=== PATIENT | female | born 1990 | race Caucasian/White ===

== ENCOUNTER 2016-05-16 14:55 | Emergency (ER) | payer OTHER ==
[~2016-05-16] VITALS: Ht 172.7 cm; Wt 90.6 kg
[~2016-05-16 14:55] MED LIST: ATOR-22 PO; BCPILLS PO; EFFSR150 PO; LIRA18IN SQ; METF-384 PO; TOPI50TA16 PO
[2016-05-16 15:02] VITALS: TEMP 37; Ht 172.7 cm; Wt 90.6 kg
[2016-05-16] MEDS ORDERED: DiphenhydrAMINE HCL 50 MG/ML VIAL IV STA (15:15)
[2016-05-16] MEDS ORDERED: DEXAMETHASONE SOD INJ 10 MG/ML VIAL IV ONE (15:15)
[2016-05-16] MEDS ORDERED: FAMOTIDINE IV INJ 20 MG in DEXTROSE 5% 100ML 100 ML IV STA (15:15)
[2016-05-16] MEDS ORDERED: EpINEphrine INJ 1MG/ML AMP 1 MG/ML AMP IM STA (15:15)
[2016-05-16 15:20] VITALS: O2SAT 100
--- NOTE | 2016-05-16 15:27 | EMERGENCY ROOM VISIT NOTE ---
History Report prepared by Quinn: Yovany Velasquez Under the Supervision of: Dr. Paul Mccann M.D. First contact with patient: 15:11 Chief Complaint: ALLERGIC REACTION Stated Complaint: HIVES, SOB, LIPS SWOLLEN History of Present Illness The patient is a 26 year old female who presents to the Emergency Room with complaints of a sudden allergic reaction beginning three hours prior to arrival. She associates facial swelling, hives on her face and chest, lip tingling, and swollen lips with today's symptoms. The patient notes the lip swelling began around 30-45 minutes ago. She denies eating anything out of the ordinary, because she made the ferro, eggs, and hamburger that she consumed today. The patient notes she is allergic to strawberries, but denies being in contact with them. She states she is a diabetic and takes pills and injections to control it. The patient denies any recent medication changes. Source of History: patient Onset: 3 hours prior to arrival Position: other (global) Quality: other (allergic reaction) Timing: other (sudden) Associated Symptoms: + rash Note: Associated symptoms: facial swelling, hives on her face and chest, lip tingling , and swollen lips Review of Systems See HPI for pertinent positives & negatives. A total of 10 systems reviewed and were otherwise negative. Past Medical & Surgical Medical Problems: (1) section (2) Cholecystectomy (3) Diabetes mellitus type 2 (4) R/O labor Family History Diabetes mellitus Kidney disease Social History Smoking Status: Never Smoker Alcohol Use: none Marital Status: Housing Status: lives with significant other Occupation Status: employed Current/Historical Medications Scheduled Atorvastatin (Lipitor), 20 MG PO DAILY Control Pills ( Control Pills), 1 TAB PO DAILY Epinephrine (Epipen 2-Mike), 1 APPLN IM DIRECTED Liraglutide (Victoza), 1.2 ML SQ QAM Metformin Hcl (Glucophage), 1,000 MG PO BID Prednisone (Prednisone), 2 TAB PO DAILY Ranitidine (Zantac), 150 MG PO BID Topiramate (Topamax), 50 MG PO QAM Topiramate (Topamax), 75 MG PO QPM Venlafaxine Hcl (Venlafaxine Hcl Er), 150 MG PO DAILY Allergies Coded Allergies: Oxycodone (Verified Allergy, Unknown, HIVES, 12/01/15) [place] (Verified Allergy, Unknown, ., 12/01/15) Physical Exam Vital Signs Date Time Temp Pulse Resp B/P Pulse Ox O2 Delivery O2 Flow Rate FiO2 05/16/16 17:19 81 17 113/85 97 Room Air 05/16/16 15:46 84 16 134/81 100 Room Air 05/16/16 15:28 128 05/16/16 15:20 100 Room Air 05/16/16 15:04 98 Room Air 05/16/16 15:02 37.0 78 17 140/107 100 Room Air Physical Exam GENERAL: Patient is in no acute distress. HEENT: Facial swelling with some urticarial lesions noted. Mild lip edema noted. Mucous membranes moist. No uvular edema. NECK: No stridor, no adenopathy, no meningismus, trachea is midline. LUNGS: Clear to auscultation bilaterally, no wheeze, no rhonchi, breath sounds equal. HEART: Without murmurs gallops or rubs, regular rate and rhythm. ABDOMEN: Soft, nontender, bowel sounds positive, no hernias, no peritonitis. EXTREMITIES: No cyanosis or edema, full range of motion of all the joints without pain or difficulty, no signs for acute trauma. NEUROLOGIC: Oriented x 3, no acute motor or sensory deficits, no focal weakness. SKIN: Scattered reddened, slightly raised urticarial lesions noted. No jaundice , no diaphoresis. Medical Decision & Procedures Medications Administered Medications (Trade) Dose Ordered Sig/Curtis Route Start Time Stop Time Status Last Admin Dose Admin Epinephrine HCl (EpINEphrine INJ 1MG/ML AMP/VIAL) 0.3 mg NOW STAT IM 05/16/16 15:15 05/16/16 15:18 DC 05/16/16 15:22 0.3 MG Dexamethasone Sodium Phosphate 10 mg 10 mg NOW ONCE IV 05/16/16 15:15 05/16/16 15:18 DC 05/16/16 15:23 10 MG Famotidine/ Dextrose (Pepcid IV Inj/ D5 100ml) 102 ml @ 200 mls/hr NOW STAT IV 05/16/16 15:15 05/16/16 15:45 DC 05/16/16 15:43 200 MLS/HR Diphenhydramine HCl (Benadryl Inj) 50 mg NOW STAT IV 05/16/16 15:15 05/16/16 15:18 DC 05/16/16 15:23 50 MG Epinephrine (Epipen) 0.3 mg NOW STAT IM 05/16/16 16:57 05/16/16 16:58 DC 05/16/16 17:17 0.3 MG ED Course 151: The patient was evaluated in room A11B. A complete history and physical exam was performed. 1515: Ordered Benadryl Inj 50 mg IV, Famotidine 20 mg/ Dextrose 102 ml @ 200 mls /hr IV, Decadron Inj 10 mg IV, Epinephrine HCl 0.3 mg IM. 1637: Reevaluated the patient at this time, and she is feeling markedly better. The facial swelling and redness is resolving, as well as the lip swelling. The patient is resting comfortably. 1657: Ordered Epipen 0.3 mg IM--to be taken home with the patient. 1800: The patient will be watched here in the ED for a little longer. If she does well, the patient will be discharged home. She is presently resting comfortably and feels markedly improved. Medical Decision The differential diagnoses include but are not limited to: acute allergic reaction, food borne allergy, environmental allergy, medication reaction, anaphylaxis, wheezing, hives. The patient presents with what seems like an acute allergic reaction. The cause was unclear. She had no uvular edema, she was not hypoxic. There was no wheezing. She did have some facial swelling, lip edema and hives. The patient was aggressively managed. She was placed on the monitor. She received IM epinephrine, IV Decadron, IV Pepcid and IV Benadryl. The patient has had significant improvement in her symptoms with the above meds. She is resting comfortably. The facial hives and edema have resolved. She is resting, she is not short of breath. The patient will be watched in the emergency room for around 4 hours. If she does well, she will be discharged on oral Benadryl, oral Zantac, oral prednisone. She will receive an epinephrine pen to have with her at all times. Because she is diabetic she will need to closely watch her sugar while taking prednisone. She has adjusted her meds before when on steroids. The patient was encouraged to return to this ER for worsening symptoms. She will see her doctor's office for eventual allergy testing. Impression Primary Impression: Acute allergic reaction Scribe Attestation The scribe's documentation has been prepared under my direction and personally reviewed by me in its entirety. I confirm that the note above accurately reflects all work, treatment, procedures, and medical decision making performed by me. Departure Information Dispostion Still a Patient Prescriptions Ranitidine (Zantac) 150 Mg Tab 150 MG PO BID for 3 Days, #6 TAB Prov: Paul Mccann M.D. 05/16/16 Prednisone (Prednisone) 20 Mg Tab 2 TAB PO DAILY for 3 Days, #6 TAB Prov: Paul Mccann M.D. 05/16/16 Epinephrine (EPIPEN 2-MIKE) 0.3 Mg Inj 1 APPLN IM DIRECTED, #1 APPL Prov: Paul Mccann M.D. 05/16/16 Referrals No Doctor, Assigned (PCP) Forms HOME CARE DOCUMENTATION FORM, IMPORTANT VISIT INFORMATION Patient Instructions My [facility] Additional Instructions keep epipen with you at all times benadryl 2 tab 3x per day for 3 more days prednisone daily for 3 more days zantac 2x per day for 3 more days keep a very close watch on your sugars and adjust meds as needed follow with your doctor for allergy testing return if worsening
[2016-05-16] MEDS ORDERED: VENL150T33 PO (15:46)
[2016-05-16] MEDS ORDERED: PRED20TA PO (16:56)
[2016-05-16] MEDS ORDERED: EPP3/2 IM (16:56)
[2016-05-16] MEDS ORDERED: ZNTT/150 PO (16:56)
[2016-05-16] MEDS ORDERED: EPINEPHRINE ADULT AUTO-INJECT 0.3 MG SYR IM STA (16:57)
[2016-05-16 19:10] VITALS: BP 136/93; PULSE 71; O2SAT 98
== END 2016-05-16 19:10 | disposition home or self-care (01) ==
LOC: C.EDB 14:57 → C.EDA 19:10
DX: T78.40XA Allergy, unspecified, initial encounter (principal); L50.0 Allergic urticaria; E11.9 Type 2 diabetes mellitus without complications; Z83.3 Family history of diabetes mellitus; Z79.3 Long term (current) use of hormonal contraceptives; Z79.899 Other long term (current) drug therapy; X58.XXXA Exposure to other specified factors, initial encounter

== ENCOUNTER 2016-05-21 13:04 | Emergency (ER) | payer OTHER ==
[~2016-05-21] VITALS: Ht 172.7 cm; Wt 88.8 kg
[~2016-05-21 13:04] MED LIST changes: -EFFSR150 PO; +EPP3/2 IM; +VENL150T33 PO
[2016-05-21 13:18] VITALS: TEMP 36.8; Ht 172.7 cm; Wt 88.8 kg
[2016-05-21] MEDS ORDERED: DiphenhydrAMINE HCL 50 MG/ML VIAL IV STA (13:56)
[2016-05-21] MEDS ORDERED: PROCHLORPERAZINE 5 MG/ML 2 ML VIAL IV STA (13:56)
[2016-05-21] MEDS ORDERED: SODIUM CHLORIDE 0.9% 1000ML 1,000 ML IV STA (13:56)
--- NOTE | 2016-05-21 14:15 | EMERGENCY ROOM VISIT NOTE ---
History Report prepared by Quinn: Verna rOdaz Under the Supervision of: Dr. Sissy Gama M.D. First contact with patient: 13:24 Chief Complaint: SYNCOPE Stated Complaint: PASSING OUT, HEADACHE Nursing Triage Summary: Triage note: pt reports "i was sitting at work and passed out." pt reports head pain "it has been hurting for about 2 weeks." History of Present Illness The patient is a 26 year old female who presents to the Emergency Room with complaints of a syncopal episode that occurred 2 hours ago. The patient has a history of diabetes and takes Metformin and Venlafaxine PO, as well as Liraglutide injections to control her sugar. This morning, the patient did eat breakfast. She did not feel as if her sugar was low through the morning. At lunch, she was sitting at her desk and had a syncopal episode. The patient's coworkers said that she bumped her forehead on her desk. Initially she was not responding to physical stimuli, but she woke up after about a minute. Upon arrival, her blood sugar was 64, which is on the low side for her. The patient reports that she has had a migraine headache for the past two weeks. She states that she has a history of migraine headaches and her current headache is normal for her, especially considering the weather recently. Currently, she has a headache, but it is not any worse than it was prior to the syncopal event earlier today. The patient has never been a smoker. She does not have a chance of as she has a history of a tubal ligation and is on control pills. She denies chest pain or shortness of breath. Source of History: patient Onset: 2 hours ago Position: other (Global) Quality: other (syncope) Timing: other (episode) Associated Symptoms: + headache, No SOB, No chest pain Review of Systems See HPI for pertinent positives & negatives. A total of 10 systems reviewed and were otherwise negative. Past Medical & Surgical Medical Problems: (1) section (2) Cholecystectomy (3) Diabetes mellitus type 2 (4) R/O labor Family History Diabetes mellitus Kidney disease Social History Smoking Status: Never Smoker Alcohol Use: none Marital Status: Housing Status: lives with significant other Occupation Status: employed Current/Historical Medications Scheduled Atorvastatin (Lipitor), 20 MG PO DAILY Control Pills ( Control Pills), 1 TAB PO DAILY Epinephrine (Epipen 2-Mike), 1 APPLN IM DIRECTED Liraglutide (Victoza), 1.2 ML SQ QAM Metformin Hcl (Glucophage), 1,000 MG PO BID Topiramate (Topamax), 50 MG PO QAM Topiramate (Topamax), 75 MG PO QPM Venlafaxine Hcl (Venlafaxine Hcl Er), 150 MG PO DAILY Allergies Coded Allergies: Oxycodone (Verified Allergy, Unknown, HIVES, 05/21/16) [place] (Verified Allergy, Unknown, ., 05/21/16) Physical Exam Vital Signs Date Time Temp Pulse Resp B/P Pulse Ox O2 Delivery O2 Flow Rate FiO2 05/21/16 16:17 74 14 108/69 99 05/21/16 14:33 87 16 127/91 97 Room Air 05/21/16 13:43 67 05/21/16 13:18 36.8 70 18 130/89 99 Room Air Physical Exam Vital signs reviewed. General: Well-appearing 26 year old female, in no significant distress. HEENT: No scleral icterus, PERRLA, neck supple. Atraumatic. Cardiovascular: Regular rate and rhythm, no extra sounds. Pulmonary: Clear to auscultation bilaterally, normal work of breathing. Abdomen: Soft, nontender, nondistended, positive bowel sounds. Musculoskeletal: Atraumatic, no peripheral edema. Neurologic: Patient awake alert and oriented x 3, full strength in all 4 extremities. Cranial nerves 2 through 12 grossly intact, no meningeal signs. Skin: Warm, dry, no rash Medical Decision & Procedures ER Provider Diagnostic Interpretation: X-ray results as stated below per interpretation by me and the radiologist: CHEST ONE VIEW PORTABLE CLINICAL HISTORY: Syncope. COMPARISON STUDY: Chest radiograph August 21, 2015, FINDINGS: Lung volumes are normal. Lungs are clear. There is no pneumothorax or pleural effusion. Cardiac size is at the upper limits of normal. There is no evidence of pulmonary edema. IMPRESSION: No acute cardiopulmonary findings. Electronically signed by: Rajendra Ho M.D. 05/21/2016 2:37 PM Dictated Date/Time: 05/21/2016 2:37 PM Laboratory Results 05/21/16 14:15 Red Blood Count 4.97, Mean Corpuscular Volume 84.1, Mean Corpuscular Hemoglobin 28.0, Mean Corpuscular Hemoglobin Concent 33.3, Mean Platelet Volume 11.8, Neutrophils (%) (Auto) 56.4, Lymphocytes (%) (Auto) 36.2, Monocytes (%) (Auto) 7.2, Eosinophils (%) (Auto) 0.0, Basophils (%) (Auto) 0.0, Neutrophils # (Auto) 3.47, Lymphocytes # (Auto) 2.22, Monocytes # (Auto) 0.44, Eosinophils # (Auto) 0.00, Basophils # (Auto) 0.00 05/21/16 14:15 Test 05/21/16 00:00 05/21/16 14:15 05/21/16 14:24 05/21/16 14:31 Urine Color YELLOW Urine Appearance CLEAR (CLEAR) Urine pH 6.5 (4.5-7.5) Urine Specific [place] 1.002 (1.000-1.030) Urine Protein NEG (NEG) Urine Glucose (UA) NEG (NEG) Urine Ketones NEG (NEG) Urine Occult Blood TRACE (NEG) Urine Nitrite NEG (NEG) Urine Bilirubin NEG (NEG) Urine Urobilinogen NEG (NEG) Urine Leukocyte Esterase NEG (NEG) Urine WBC (Auto) 1-5 /hpf (0-5) Urine RBC (Auto) 0-4 /hpf (0-4) Urine Hyaline Casts (Auto) 0 /lpf (0-5) Urine Epithelial Cells (Auto) 5-10 /lpf (0-5) Urine Bacteria (Auto) NEG (NEG) White Blood Count 6.14 K/uL (4.8-10.8) Red Blood Count 4.97 M/uL (4.2-5.4) Hemoglobin 13.9 g/dL (12.0-16.0) Hematocrit 41.8 % (37-47) Mean Corpuscular Volume 84.1 fL (80-100) Mean Corpuscular Hemoglobin 28.0 pg (25-34) Mean Corpuscular Hemoglobin Concent 33.3 g/dl (32-36) Platelet Count 256 K/uL (130-400) Mean Platelet Volume 11.8 fL (7.4-10.4) Neutrophils (%) (Auto) 56.4 % Lymphocytes (%) (Auto) 36.2 % Monocytes (%) (Auto) 7.2 % Eosinophils (%) (Auto) 0.0 % Basophils (%) (Auto) 0.0 % Neutrophils # (Auto) 3.47 K/uL (1.4-6.5) Lymphocytes # (Auto) 2.22 K/uL (1.2-3.4) Monocytes # (Auto) 0.44 K/uL (0.11-0.59) Eosinophils # (Auto) 0.00 K/uL (0-0.5) Basophils # (Auto) 0.00 K/uL (0-0.2) RDW Standard Deviation 41.8 fL (36.4-46.3) RDW Coefficient of Variation 13.7 % (11.5-14.5) Immature Granulocyte % (Auto) 0.2 % Immature Granulocyte # (Auto) 0.01 K/uL (0.00-0.02) Anion Gap 8.0 mmol/L (3-11) Est Creatinine Clear Calc Drug Dose 105.7 ml/min Estimated GFR () 97.0 Estimated GFR (Non- 83.7 BUN/Creatinine Ratio 11.5 (10-20) Calcium Level 8.7 mg/dl (8.5-10.1) Magnesium Level 2.2 mg/dl (1.8-2.4) Total Bilirubin 0.7 mg/dl (0.2-1) Direct Bilirubin 0.2 mg/dl (0-0.2) Aspartate Amino Transf (AST/SGOT) 9 U/L (15-37) Alanine Aminotransferase (ALT/SGPT) 16 U/L (12-78) Alkaline Phosphatase 53 U/L (45-117) Total Protein 7.6 gm/dl (6.4-8.2) Albumin 3.9 gm/dl (3.4-5.0) Thyroid Stimulating Hormone (TSH) 0.726 uIu/ml (0.300-4.500) Human Chorionic Gonadotropin, Qual NEG (NEG) Bedside Glucose 85 mg/dl (70-90) Bedside D-Dimer 358 ng/mlFEU (0-450) Bedside Troponin I 0.000 ng/ml (0-0.045) Laboratory results per my review. Medications Administered Medications (Trade) Dose Ordered Sig/Curtis Route Start Time Stop Time Status Last Admin Dose Admin Prochlorperazine Edisylate (Compazine Inj) 10 mg NOW STAT IV 05/21/16 13:56 05/21/16 13:59 DC 05/21/16 14:29 10 MG Diphenhydramine HCl 25 mg 25 mg NOW STAT IV 05/21/16 13:56 05/21/16 13:59 DC 05/21/16 14:29 25 MG Sodium Chloride (Nss 1000ml) 1,000 ml @ 999 mls/hr Q1H1M STAT IV 05/21/16 13:56 05/21/16 14:56 DC 05/21/16 14:29 999 MLS/HR ECG Indication: syncope Rate (beats per minute): 60 Rhythm: sinus with SA Findings: no acute ischemic change, no ectopy ED Course 1354: The patient was evaluated in room A11. A complete history and physical examination was performed. 1356: Ordered NSS 1000 ml @ 999 mls/hr IV, Benadryl Inj 25 mg IV, Compazine Inj 10 mg IV. 1611: Upon reevaluation, the patient was resting comfortably. I discussed findings with the patient. She verbalized agreement of the treatment plan. She was discharged home. Medical Decision Differential diagnosis: Etiologies such as vasovagal event, infection, hypoglycemia, electrolyte abnormalities, cardiac sources, intracerebral event, toxicologic, neurologic, as well as others were entertained. This patient was evaluated and appeared to be in no significant distress. IV access was obtained and laboratory work was drawn. The patient was medicated with IV Compazine and Benadryl for her headache. Laboratory work is reassuring. Patient's mother states she has lost over 50 pounds and is on the same dose of insulin. She feels that her blood sugars drop pretty easily at this point. Patient was given a snack and tolerated this well. Her headache resolved. Patient was discharged to the care of her mother to follow-up with her PCP this week. Patient will return to the ER for worsening of symptoms or any medical concerns. Impression Primary Impression: Syncope Scribe Attestation The scribe's documentation has been prepared under my direction and personally reviewed by me in its entirety. I confirm that the note above accurately reflects all work, treatment, procedures, and medical decision making performed by me. Departure Information Dispostion Home / Self-Care Referrals Steve Beckman III, M.D. (PCP) Patient Instructions My [facility] Additional Instructions Diagnosis: Syncope Please monitor your blood sugars closely this evening. Eat every few hours and drink plenty of clear fluids. Follow-up with your physician this week if symptoms recur. Return to the ER immediately for worsening of symptoms or any medical concerns. Problem Qualifiers Primary Impression: Syncope Syncope type: unspecified Qualified Codes: R55 - Syncope and collapse
[2016-05-21 14:33] LABS: COMPLETE YES; HEMATOCRIT 41.8 % (37-47); IG% 0.2 %; LYMPH % 36.2 %; LYMPH ABS # 2.22 K/uL (1.2-3.4); MEAN CELL VOLUME 84.1 fL (80-100); MEAN CORPUSCULAR HGB CONC 33.3 g/dl (32-36); MEAN PLATELET VOLUME 11.8 fL (7.4-10.4); MONO % 7.2 %; NEUT % 56.4 %; PLATELET COUNT 256 K/uL (130-400); RED BLOOD COUNT 4.97 M/uL (4.2-5.4); WHITE BLOOD COUNT 6.14 K/uL (4.8-10.8)
--- NOTE | 2016-05-21 14:39 | DIAGNOSTIC IMAGING REPORT ---
CHEST ONE VIEW PORTABLE CLINICAL HISTORY: Syncope. COMPARISON STUDY: Chest radiograph August 21, 2015, FINDINGS: Lung volumes are normal. Lungs are clear. There is no pneumothorax or pleural effusion. Cardiac size is at the upper limits of normal. There is no evidence of pulmonary edema. IMPRESSION: No acute cardiopulmonary findings. Electronically signed by: Rajendra Ho M.D. 05/21/2016 2:37 PM Dictated Date/Time: 05/21/2016 2:37 PM
[2016-05-21 14:50] LABS: BUN/CREATININE RATIO 11.5 (10-20); CALCIUM 8.7 mg/dl (8.5-10.1); CREATININE 0.94 mg/dl (0.60-1.20); MAGNESIUM 2.2 mg/dl (1.8-2.4); POTASSIUM 3.4 mmol/L (3.5-5.1)
[2016-05-21 14:54] LABS: PREG INTERNAL NEGATIVE QC NEG CLEAR BACKGROUND; PREG INTERNAL POSITIVE QC POS CONTROL LINE
[2016-05-21 15:01] LABS: THYROID STIMULATING HORMONE 0.726 uIu/ml (0.300-4.500)
[2016-05-21 16:01] LABS: URINE APPEARANCE CLEAR (CLEAR); URINE BILIRUBIN NEG (NEG); URINE COLOR YELLOW; URINE NITRITE NEG (NEG); URINE PH 6.5 (4.5-7.5); URINE SPECIFIC GRAVITY 1.002 (1.000-1.030); UROBILINOGEN NEG (NEG); ZZUR CULT IF INDIC CLEAN CATCH NO
[2016-05-21 16:05] LABS: MANUAL MICROSCOPIC REQUIRED? NO; REVIEW REQ? YES
[2016-05-21 16:17] VITALS: BP 108/69; PULSE 74; O2SAT 99
== END 2016-05-21 16:26 | disposition home or self-care (01) ==
LOC: C.EDB 13:06 → C.EDA 16:26
DX: R55 Syncope and collapse (principal); E11.9 Type 2 diabetes mellitus without complications; Z90.49 Acquired absence of other specified parts of digestive tract

== ENCOUNTER 2016-10-10 10:43 | Emergency (ER) | payer OTHER ==
[~2016-10-10] VITALS: Ht 172.7 cm; Wt 91.4 kg
[~2016-10-10 10:43] MED LIST changes: -ATOR-22 PO; -LIRA18IN SQ; -METF-384 PO; -TOPI50TA16 PO; -VENL150T33 PO
[2016-10-10 10:45] VITALS: TEMP 36.8; Ht 172.7 cm; Wt 91.4 kg
--- NOTE | 2016-10-10 11:01 | EMERGENCY ROOM VISIT NOTE ---
History Report prepared by Quinn: Bonnie Whitmore Under the Supervision of: Dr. Prasad Keating M.D. First contact with patient: 10:52 Chief Complaint: VOMITING Stated Complaint: SUNBURN, VOMITING, HEADACHE History of Present Illness The patient is a 26 year old female who presents to the Emergency Room with complaints of a persistent migraine-headache that began around 0100 this morning. She currently rates her discomfort as a 7/10 in severity. The patient reports that she was outside all day yesterday noting that she developed a bad sunburn. She states that she woke up this morning with a migraine-headache and began vomiting. The patient associates nausea with her symptoms. She states that light worsens her discomfort. The patient reports a history of migraine-headaches. Source of History: patient Onset: 0100 this morning Position: head Symptom Intensity: 7/10 Quality: ache (migraine) Timing: other (persistent) Modifying Factors (Worsening): other (light) Associated Symptoms: + nausea, + vomiting Note: Associated Symptoms: sunburn Review of Systems See HPI for pertinent positives & negatives. A total of 10 systems reviewed and were otherwise negative. Past Medical & Surgical Medical Problems: (1) section (2) Cholecystectomy (3) Diabetes mellitus type 2 (4) R/O labor Family History Diabetes mellitus Kidney disease Social History Smoking Status: Never Smoker Alcohol Use: none Marital Status: Housing Status: lives with significant other Occupation Status: employed Current/Historical Medications Scheduled Atorvastatin (Lipitor), 20 MG PO DAILY Control Pills ( Control Pills), 1 TAB PO DAILY Epinephrine (Epipen 2-Mike), 1 APPLN IM DIRECTED Liraglutide (Victoza), 1.2 ML SQ QAM Metformin Hcl (Glucophage), 1,000 MG PO BID Topiramate (Topamax), 50 MG PO QAM Topiramate (Topamax), 75 MG PO QPM Venlafaxine Hcl (Venlafaxine Hcl Er), 150 MG PO DAILY Allergies Coded Allergies: Oxycodone (Verified Allergy, Unknown, HIVES, 10/10/16) [place] (Verified Allergy, Unknown, ., 10/10/16) Physical Exam Vital Signs Date Time Temp Pulse Resp B/P (MAP) Pulse Ox O2 Delivery O2 Flow Rate FiO2 10/10/16 12:59 86 18 113/70 100 10/10/16 11:36 71 14 114/74 100 Room Air 10/10/16 10:45 36.8 75 16 120/82 99 Room Air Physical Exam GENERAL: Patient awake, alert, oriented x 3. Patient follows commands. Patient does not appear toxic. Patient appears well nourished, but mildly to moderately dry. SKIN: Sunburn to the anterior and posterior chest and some to the face and ears , no pallor, cyanosis or rash HEENT: Normal head, pupils equal, reactive to light and accommodation. Ears normal. Oral cavity and posterior pharynx, mucous membranes appear slightly dry. Neck: Without adenopathy, no neck vein distention. LUNGS: Clear to auscultation. No wheezes, no rales, no rhonchi. HEART: No murmurs. No gallops. No rubs ABDOMEN: Vague, generalized abdominal tenderness. No masses, no rebound, no hepatomegaly or splenomegaly. EXTREMITIES: No signs of trauma or infection. NEUROLOGIC: Cranial nerves II-XII within normal limits. No gross motor sensory function deficits. Medical Decision & Procedures Medications Administered Medications (Trade) Dose Ordered Sig/Curtis Route Start Time Stop Time Status Last Admin Dose Admin Sodium Chloride 1,000 ml @ 1,000 mls/hr Q1H ONCE IV 10/10/16 11:15 10/10/16 12:14 DC 10/10/16 11:34 1,000 MLS/HR Prochlorperazine Edisylate (Compazine Inj) 10 mg NOW STAT IV 10/10/16 11:06 10/10/16 11:08 DC 10/10/16 11:35 10 MG ED Course 1054: Past medical records reviewed. The patient was evaluated in room B3B. A complete history and physical examination was performed. 1106: Ordered Compazine Inj 10 mg IV. 1115: Ordered Sodium Chloride 1000 ml @ 1000 mls/hr IV. 1230: I reevaluated the patient and she is resting comfortably. I discussed the exam findings with her and I discussed the treatment plan. She verbalized complete understanding and agreement. She is ready to go home. Medical Decision Nurses notes reviewed. Medical history sheet reviewed. Differential diagnosis includes but is not limited to: sunburn, dehydration, gastroenteritis, metabolic disorder. The patient is here with significant sunburn from yesterday and now vomiting today. Patient complains of a headache. The patient is mild to moderately dehydrated. The patient was given IV fluids and Compazine. The patient had marked improvement. She is able to drink fluids prior to departure. I do not believe she requires any lab work. The patient was discharged feeling significantly better. Medication Reconciliation: I attest that I have personally reviewed the patient' s current medication list. Blood pressure Screening: Patient was found to have normal blood pressure on screening and does not require follow up. Impression Primary Impression: Dehydration Additional Impressions: Sunburn Headache Scribe Attestation The scribe's documentation has been prepared under my direction and personally reviewed by me in its entirety. I confirm that the note above accurately reflects all work, treatment, procedures, and medical decision making performed by me. Departure Information Dispostion Home / Self-Care Referrals Steve Beckman III, M.D. (PCP) Forms HOME CARE DOCUMENTATION FORM, IMPORTANT VISIT INFORMATION Patient Instructions ED Burn Sunburn, My [facility] Additional Instructions Drink at least 3-4 quarts of liquid over the next 24 hours. You may take Tylenol if you have any more headache. Use sunscreen in the future. Problem Qualifiers
[2016-10-10] MEDS ORDERED: PROCHLORPERAZINE 5 MG/ML 2 ML VIAL IV STA (11:06)
[2016-10-10] MEDS ORDERED: SODIUM CHLORIDE 0.9% 1000ML 1,000 ML IV ONE (11:15)
[2016-10-10 12:59] VITALS: BP 113/70; PULSE 86; O2SAT 100
[2017-02-10] MEDS ORDERED: TOPI50TA16 PO ×2 (11:16→13:51)
[2017-02-10] MEDS ORDERED: LIRA18IN SQ (13:51)
[2017-02-10] MEDS ORDERED: ATOR-22 PO (13:52)
[2017-02-10] MEDS ORDERED: METF-384 PO (14:04)
[2017-02-10] MEDS ORDERED: VENL150T33 PO (15:46)
== END 2016-10-10 13:01 | disposition home or self-care (01) ==
LOC: C.EDB 10:44
DX: E86.0 Dehydration (principal); L55.9 Sunburn, unspecified; R51 Headache; E11.9 Type 2 diabetes mellitus without complications; Z83.3 Family history of diabetes mellitus; Z84.1 Family history of disorders of kidney and ureter; Z79.899 Other long term (current) drug therapy; Z79.3 Long term (current) use of hormonal contraceptives

== ENCOUNTER 2017-02-10 16:06 | Emergency (ER) | payer OTHER ==
[~2017-02-10] VITALS: Ht 172.7 cm; Wt 92.4 kg
[~2017-02-10 16:06] MED LIST changes: +ATOR-22 PO; +LIRA18IN SQ; +METF-384 PO; +TOPI50TA16 PO; +VENL150T33 PO
[2017-02-10 16:12] VITALS: TEMP 36.6; Ht 172.7 cm; Wt 92.4 kg
[2017-02-10] MEDS ORDERED: FAMOTIDINE 20MG/102 ML D5W IV STA (16:30)
[2017-02-10] MEDS ORDERED: DEXAMETHASONE SOD INJ 10 MG/ML VIAL IV ONE (16:30)
[2017-02-10] MEDS ORDERED: DiphenhydrAMINE HCL 50 MG/ML VIAL IV STA (16:30)
[2017-02-10] MEDS ORDERED: EPP3/2 IM (17:05)
[2017-02-10 18:37] VITALS: BP 126/85; PULSE 73; O2SAT 98
--- NOTE | 2017-02-10 22:28 | EMERGENCY ROOM VISIT NOTE ---
History Report prepared by Quinn: Selvin Esquivel Under the Supervision of: Dr. Gene Robles D.O. First contact with patient: 16:18 Chief Complaint: RESPIRATORY PROBLEMS Stated Complaint: HARD BREATHING, TINGLING LIPS, HIVES Nursing Triage Summary: "I just can't get my breath. I am allergic to cats and I was at a house with cats. I work for [employer]. I tried my inhaler, but it doesn't feel like it is helping." per pt. Pt able to speak full sentences in triage. History of Present Illness The patient is a 26 year old female who presents to the Emergency Room with complaints of shortness of breath that began about a half hour ago. She describes this shortness of breath as a tightness and itching in her throat. At this time, she was working and was sent to a home that had cats. She was in the house for about 10 minutes and then her symptoms began. She does have a cat allergy, but her reaction has never been this bad. She is having tingling in her lips and itching globally. She tried to use an inhaler but it did not help. She denies any nausea, vomiting, or diarrhea. She has a history of type 1 diabetes. She denies any other past medical problems. Source of History: patient Onset: 30 minutes ago Position: throat Symptom Intensity: moderate Quality: other (Tightness) Timing: constant Associated Symptoms: No nausea, No vomiting, No diarrhea Note: She is globally itchy. Review of Systems See HPI for pertinent positives & negatives. A total of 10 systems reviewed and were otherwise negative. Past Medical & Surgical Medical Problems: (1) section (2) Cholecystectomy (3) Diabetes mellitus type 2 (4) R/O labor Family History Diabetes mellitus Kidney disease Social History Smoking Status: Never Smoker Alcohol Use: none Marital Status: Housing Status: lives with significant other Occupation Status: employed Current/Historical Medications Scheduled Atorvastatin (Lipitor), 20 MG PO DAILY Liraglutide (Victoza), 1.2 ML SQ QAM Metformin Hcl (Glucophage), 1,000 MG PO BID Topiramate (Topamax), 50 MG PO QAM Topiramate (Topamax), 75 MG PO QPM Venlafaxine Hcl (Venlafaxine Hcl Er), 150 MG PO DAILY Scheduled PRN Epinephrine (Epipen), 0.3 MG IM UD PRN for ALLERGIC REACTION Allergies Coded Allergies: Cat Dander (Verified Allergy, Unknown, Unknown, 02/10/17) Oxycodone (Verified Allergy, Unknown, HIVES, 10/10/16) [place] (Verified Allergy, Unknown, ., 10/10/16) Physical Exam Vital Signs Date Time Temp Pulse Resp B/P (MAP) Pulse Ox O2 Delivery O2 Flow Rate FiO2 02/10/17 18:37 73 126/85 98 02/10/17 17:24 62 127/86 100 Room Air 02/10/17 16:15 100 Room Air 02/10/17 16:12 36.6 66 18 131/93 100 Room Air Physical Exam GENERAL: Sitting up in bed, alert, well appearing, well nourished, no distress, non-toxic, speaking in full sentences. EYE EXAM: normal conjunctiva OROPHARYNX: no exudate, no erythema, lips, buccal mucosa, and tongue normal and mucous membranes are moist NECK: supple, no nuchal rigidity, no adenopathy, non-tender, no stridor LUNGS: Clear to auscultation. Normal chest wall mechanics HEART: no murmurs, S1 normal and S2 normal ABDOMEN: abdomen soft, non-tender, normo-active bowel sounds, no masses, no rebound or guarding. BACK: Back is symmetrical on inspection and there is no deformity, no midline tenderness, no CVA tenderness. SKIN: no rashes and no bruising UPPER EXTREMITIES: upper extremities are grossly normal. LOWER EXTREMITIES: No pitting edema. NEURO EXAM: Normal sensorium, cranial nerves II-XII grossly intact, normal speech, no gross weakness of arms, no gross weakness of legs. Medical Decision & Procedures Medications Administered Medications (Trade) Dose Ordered Sig/Curtis Route Start Time Stop Time Status Last Admin Dose Admin Dexamethasone Sodium Phosphate (Decadron Inj) 10 mg NOW ONCE IV 02/10/17 16:30 02/10/17 16:32 DC 02/10/17 16:42 10 MG Famotidine (Pepcid 20mg/100 ml) 20 mg ONE STAT IV 02/10/17 16:30 02/10/17 16:32 DC 02/10/17 16:42 20 MG ED Course ED COURSE: Vital signs were reviewed and showed normal vitals. The patients medical record was reviewed The above diagnostic studies were performed and reviewed. ED treatments and interventions as stated above. 1618: The patient was evaluated in room A4. A complete history and physical examination was performed. 1630: Ordered Famotidine 20 mg IV, Decadron Inj 10 mg IV, Benadryl 25 mg IV 1805: After reevaluation, she is back at her baseline and feels better. 1810: Upon reevaluation, the patient is resting. I discussed my findings with the patient and she understands and agrees with the treatment plan. Based on the patients age, coexisting illnesses, exam and lab findings the decision to treat as an outpatient was made. The patient remained stable while under my care. The patient appeared well at the time of discharge. Medical Decision Differential diagnoses includes but is not limited to pneumonia, bronchitis, COPD/Asthma exacerbation, pneumothorax, pulmonary embolism, congestive heart failure, acute coronary syndrome. Patient is a 26-year-old female who presents to ER for feeling a tightness in her throat following being exposed to cats. She has a has a past medical history of allergy to cats. She notes this feels her previous episodes but worse. She has no trouble breathing. Exam is completely benign. No wheezing or stridor. Tolerating secretions. IV was established and she was given Benadryl, steroids and famotidine. Complete resolution of symptoms. Observed for 2 hours. Discharged follow-up with PCP. Instructed not to drive for 24 hours. Discussed with Pt concerning signs and symptoms to watch out for. Pt was instructed to follow up with their PCP and discussed with the patient their option to return to the ED at anytime for persistent or worsening symptoms. The appropriate anticipatory guidance and out-patient management, including indications for return to the emergency department, were explained at length to the patient and understood. Medication Reconcilliation Current Medication List: was personally reviewed by me Blood Pressure Screening Patient's blood pressure: Normal blood pressure Blood pressure disposition: Did not require urgent referral Impression Primary Impression: Allergic reaction Scribe Attestation The scribe's documentation has been prepared under my direction and personally reviewed by me in its entirety. I confirm that the note above accurately reflects all work, treatment, procedures, and medical decision making performed by me. Departure Information Dispostion Home / Self-Care Referrals Steve Beckman III, M.D. (PCP) Forms HOME CARE DOCUMENTATION FORM, IMPORTANT VISIT INFORMATION, WORK / SCHOOL INSTRUCTIONS Patient Instructions ED Allergic Reaction General Other, My [facility] Additional Instructions Please follow up with your primary care doctor with in the next 24 hours. Any worsening of your symptoms, please return to the ED immediately. This includes any fevers greater than 100.4, worsening pain, chest pain, shortness breath, persistent nausea, vomiting, unable to eat or drink, or any other concerning signs or symptoms from your standpoint. You were given medications during this visit that will inhibit your ability to drive, operate machinery and work. Please do NOT drive, operate machinery, drink alcohol or work for the next 12hrs. Please take Benadryl 50 mg as needed every 8 hours for itching. Problem Qualifiers Primary Impression: Allergic reaction Encounter type: initial encounter Qualified Codes: T78.40XA - Allergy, unspecified, initial encounter
== END 2017-02-10 18:39 | disposition home or self-care (01) ==
LOC: C.EDB 16:07 → C.EDA 18:39
DX: T78.40XA Allergy, unspecified, initial encounter (principal); X58.XXXA Exposure to other specified factors, initial encounter; E10.9 Type 1 diabetes mellitus without complications; Z90.49 Acquired absence of other specified parts of digestive tract; Z83.3 Family history of diabetes mellitus; Z84.1 Family history of disorders of kidney and ureter; Z79.899 Other long term (current) drug therapy

== ENCOUNTER 2019-11-10 09:59 | Inpatient (IN) ==
--- NOTE | 2019-11-10 10:27 | Emergency Department Note ---
Impression & Plan Stroke-like symptoms, Cerebrovascular accident, Facial droop ED Provider Note NAME: PRACHI MALIK AGE: 29 SEX: F : 1990 ARRIVES VIA: Walk-In INFORMANT: Patient ED PROVIDER(S): Gene Robles DO CHIEF COMPLAINT: Headache and facial droop HPI: Patient is a 21-year-old female who presents the ER for headache and right- sided facial droop. She has an extensive past medical history which includes lupus, family head history of clotting disorders, and strokes in a young age. She notes that she went to bed last night normal and she woke up this morning wi th a facial droop. She also has tingling and numbness in the right hand as well as the right face. She admits to a history of previous brain trauma about 10 years ago consequently she has migraines secondary to this. She denies any change in vision, chest pain shortness of breath nausea vomiting or diarrhea. No dysuria urgency or frequency. No other weakness or numbness. She was treated for Lyme disease about 2.5 weeks ago and just finished up treatment this past . ROS: See above HPI for pertinent positives & negatives. A total of 10 systems reviewed and were otherwise negative. PAST MEDICAL HISTORY:See Below PAST SURGICAL HISTORY:See Below FAMILY HISTORY:See Below SOCIAL HISTORY:See Below HOME MEDICATIONS:See Below ALLERGIES:See Below VITALS:See Below PHYSICAL EXAMINATION: GENERAL: Sitting up in bed, alert, well appearing, well nourished, no distress, non-toxic EYE EXAM: normal conjunctiva. PERRL and EOM's grossly intact. OROPHARYNX: no exudate, no erythema, lips, buccal mucosa, and tongue normal and mucous membranes are moist NECK: supple, no nuchal rigidity, no adenopathy, non-tender LUNGS: Clear to auscultation. Normal chest wall mechanics HEART: no murmurs, S1 normal and S2 normal ABDOMEN: abdomen soft, non-tender, normo-active bowel sounds, no masses, no rebo und or guarding. BACK: Back is symmetrical on inspection and there is no deformity, no midline tenderness, no CVA tenderness. SKIN: no rashes and no bruising UPPER EXTREMITIES: upper extremities are grossly normal. LOWER EXTREMITIES: No pitting edema. NEURO EXAM: Normal sensorium, right-sided facial droop but able to raise both eyebrows equally, normal speech, no weakness of arms, no weakness of legs. No drift. Finger to nose intact. Gross sensation intact. MEDICAL DECISION MAKING: Patient is a 29-year-old female who was brought in the A1 and I was called to [facility] room for evaluation as she had right-sided facial droop and right hand numbness. Patient does have a remote history of a tick bite and recently finished up antibiotics. With her presentation stroke alert was called. IVs were established and she was taken for CT as well as CT angios the head and neck all of which were negative. Patient has extensive history of lupus and a family history of early strokes. With her past medical history and extensive family history did favor that this is likely a stroke. She was given IV fluids aspirin. Discussed with Dr. Sahu from [facility]-stroke. They also agreed that this is likely a stroke although she is extremely young. Discussed with hospitalist for admission. Will defer any additional lumbar puncture until completion of the MRI as I favor CVA is most likely with her risk factors and history although cannot be certain at this time. Does not appear to be consistent with meningitis as patient has no nuchal rigidity and symptoms all started overnight including the headache this morning. Could be atypical migraine although very unlikely as she does have a clear deficit. Did consider Pink's as well but unlikely as she has hand paresthesias and able to wrinkle both forehead. As she woke up with this not a TPA candidate. Admitted to the hospital for further work-up with differential including MS, meningitis, and CVA. Triage Nursing notes reviewed. Prior medical records reviewed Vital Signs: reviewed and remarkable for no significant abnormalities Differential diagnosis: Differential Diagnosis includes but is not limited to ischemic Stroke, hemorrhagic stroke, bells palsy, mass, neoplasm, migraine headache, seizure, subarachnoid hemorrhage, TIA, and transient global amnesia. ER treatment provided: See below Diagnostics interpreted by me: ECG: Sinus bradycardia rate of 56 T WI in lead III No PVCs Normal QTC Cardiac Monitoring: An order was placed for continuous cardiac monitoring. The monitor shows a rate of 61 with sinus rhythm. Laboratory studies: As stated above and show below. Imaging studies: CT head as well as CT angios the head and neck were negative Consultation(s): Dr. Keita from [facility] ED COURSE: Procedures: none Critical Care: I have personally spent 31 minutes of critical care time in the direct management of this patient. This includes bedside care, interpretation of diagnostic studies, and testing, discussion with consultants, patient, and family members, and other required patient management activities. This 31 minutes is in excess of all separately billable procedures. Past Med/Surg History Medical History (Updated 11/10/19 @ 16:21 by Gene Robles DO) ADHD Allergic reaction (Inactive) Asthma Depression with anxiety Diabetes mellitus, type II Hemorrhagic ovarian cyst (Inactive) Migraine (Acute) Ovarian cyst (Acute) PCOS (polycystic ovarian syndrome) Surgical History (Updated 11/10/19 @ 13:12 by Izabel Malhotra PA-C) H/O tubal ligation History of Family History (Updated 11/10/19 @ 13:16 by Izabel Malhotra PA-C) Other Diabetes Hypertension Social History (Updated 11/10/19 @ 13:17 by Izabel Malhotra PA-C) Preferred Language: Indonesian Communication Ability: Effective Visual Impairment: No Limitations Hearing Ability: Normal Beliefs That Will Affect Care: None Current Living Situation: Alone Other Information That Helps Us Care for You: No Feels Safe at Home: Yes Safety Concerns: Feels Safe At This Time Smoking Status: Never smoker Hx Alcohol Use: No Hx Substance Use: No Allergies Allergies Allergy/AdvReac Type Severity Reaction Status Date / Time doxycycline Allergy Severe HIVES,DIFFICULTY Unverified 11/10/19 12:38 BREATHING; cat dander Allergy Unknown Unknown Verified 11/10/19 11:09 oxycodone Allergy Unknown HIVES Verified 11/10/19 11:09 strawberry Allergy Unknown . Verified 11/10/19 11:09 Home Meds Home Medications Medication Instructions Recorded Confirmed metformin 1,000 mg PO BID 03/18/18 11/10/19 topiramate [Topamax] 75 mg PO BID 03/18/18 11/10/19 venlafaxine [Effexor XR] 150 mg PO QPM 03/18/18 11/10/19 atorvastatin 40 mg PO HS 11/10/19 11/10/19 lorazepam [Ativan] 0.5 mg PO TID PRN 11/10/19 11/10/19 venlafaxine 37.5 mg PO QPM 11/10/19 11/10/19 Results & Data (ED) Vital Signs Vital Signs - 24 hr 11/10/19 10:05 11/10/19 10:31 11/10/19 10:36 Temperature 37.0 C Temperature Source Oral Pulse Rate 71 58 L 57 L Pulse Rate from SpO2 Sensor 58 L 57 L Respiratory Rate 20 Respiratory Depth Normal Respiratory Pattern Regular Blood Pressure 132/93 132/91 Blood Pressure Mean 106 98 Blood Pressure Position Sitting Pulse Oximetry 99 100 100 Oxygen Delivery Method Room Air Sepsis Recent Fever Within 48 Hours No Sepsis Action Taken by Nursing No Action Required 11/10/19 10:45 11/10/19 11:00 11/10/19 11:01 Temperature Temperature Source Pulse Rate 58 L 62 60 Pulse Rate from SpO2 Sensor 59 L 60 62 Respiratory Rate Respiratory Depth Respiratory Pattern Blood Pressure 149/103 H Blood Pressure Mean 109 Blood Pressure Position Pulse Oximetry 99 100 100 Oxygen Delivery Method Sepsis Recent Fever Within 48 Hours Sepsis Action Taken by Nursing 11/10/19 11:15 11/10/19 11:30 11/10/19 11:41 Temperature Temperature Source Pulse Rate 65 Pulse Rate from SpO2 Sensor 58 L 55 L 67 Respiratory Rate Respiratory Depth Respiratory Pattern Blood Pressure 140/106 H 129/101 H Blood Pressure Mean 117 106 Blood Pressure Position Pulse Oximetry 100 100 100 Oxygen Delivery Method Sepsis Recent Fever Within 48 Hours Sepsis Action Taken by Nursing 11/10/19 11:45 11/10/19 12:00 11/10/19 12:01 Temperature Temperature Source Pulse Rate 55 L 57 L 59 L Pulse Rate from SpO2 Sensor 55 L 57 L 59 L Respiratory Rate Respiratory Depth Respiratory Pattern Blood Pressure 130/92 Blood Pressure Mean 114 Blood Pressure Position Pulse Oximetry 100 100 100 Oxygen Delivery Method Sepsis Recent Fever Within 48 Hours Sepsis Action Taken by Nursing Laboratory Data Result diagrams: 11/10/19 10:23 11/10/19 10:23 Lab Results 11/10/19 11/10/19 11/10/19 Range/Units 10:23 10:23 10:23 WBC 6.59 (4.8-10.8) K/uL RBC 4.81 (4.2-5.4) M/uL Hgb 13.3 (12.0-16.0) g/dL POC Hgb (12.0-16.0) g/dl Hct 39.9 (37-47) % POC Hct (37-47) % MCV 83.0 (80-100) fL MCH 27.7 (25-34) pg MCHC 33.3 (32-36) g/dL RDW Std Deviation 46.2 (36.4-46.3) fL RDW Coeff of Jasmin 15.2 H (11.5-14.5) % Plt Count 264 (130-400) K/uL MPV 11.9 H (7.4-10.4) fL Immature Gran % (Auto) 0.2 % Neut % (Auto) 62.0 % Lymph % (Auto) 29.3 % [place] % (Auto) 8.5 % Eos % (Auto) 0.0 % Baso % (Auto) 0.0 % Neut # (Auto) 4.09 (1.4-6.5) K/uL Lymph # (Auto) 1.93 (1.2-3.4) K/uL [place] # (Auto) 0.56 (0.11-0.59) K/uL Eos # (Auto) 0.00 (0-0.5) K/uL Baso # (Auto) 0.00 (0-0.2) K/uL Immature Gran # (Auto) 0.01 (0.00-0.02) K/uL PT 10.8 (9.0-12.0) Seconds INR 1.0 (0.9-1.1) APTT 27.9 (21.0-31.0) Seconds PTT Ratio 1.0 POC Sodium (135-144) mmol/L Sodium 143 (136-145) mmol/L POC Potassium (3.3-5.0) mmol/L Potassium 3.6 (3.5-5.1) mmol/L POC Chloride (101-112) mmol/L Chloride 113 H (98-107) mmol/L Carbon Dioxide 22 (21-32) mmol/L POC Total CO2 (24-31) mmol/L Anion Gap 8.0 (3-11) POC Anion Gap (16-25) mmol/L POC BUN (7-18) mg/dl BUN 10 (7-18) mg/dl Creatinine 0.99 (0.6-1.2) mg/dl POC Creatinine (0.6-1.3) mg/dl Est Cr Clr Drug Dosing 102.4 ml/min Est GFR ( Amer) 89.3 Est GFR (Non-Af Amer) 77.0 BUN/Creatinine Ratio 10.2 (10-20) Glucose 113 H (70-99) mg/dl POC Glucose (other) (70-99) mg/dl Calcium 8.8 (8.5-10.1) mg/dl POC Ioniz Calcium Krystyna (1.12-1.32) mmol/l Magnesium 2.3 (1.8-2.4) mg/dl Total Bilirubin 1.0 (0.2-1) mg/dl AST 14 L (15-37) U/L ALT 17 (12-78) U/L Alkaline Phosphatase 70 (45-117) U/L Troponin I < 0.015 (0-0.045) ng/ml Total Protein 8.3 H (6.4-8.2) gm/dl Albumin 3.9 (3.4-5.0) gm/dl Globulin 4.4 H (2.5-4.0) gm/dl Albumin/Globulin Ratio 0.9 (0.9-2) TSH (0.300-4.500) uIu/ml Anaplasma Smear See Comment Lyme Disease IgG Ab (Negative) Lyme Disease IgM Ab (Negative) 11/10/19 11/10/19 11/10/19 Range/Units 10:23 10:23 10:26 WBC (4.8-10.8) K/uL RBC (4.2-5.4) M/uL Hgb (12.0-16.0) g/dL POC Hgb 13.9 (12.0-16.0) g/dl Hct (37-47) % POC Hct 41 (37-47) % MCV (80-100) fL MCH (25-34) pg MCHC (32-36) g/dL RDW Std Deviation (36.4-46.3) fL RDW Coeff of Jasmin (11.5-14.5) % Plt Count (130-400) K/uL MPV (7.4-10.4) fL Immature Gran % (Auto) % Neut % (Auto) % Lymph % (Auto) % [place] % (Auto) % Eos % (Auto) % Baso % (Auto) % Neut # (Auto) (1.4-6.5) K/uL Lymph # (Auto) (1.2-3.4) K/uL [place] # (Auto) (0.11-0.59) K/uL Eos # (Auto) (0-0.5) K/uL Baso # (Auto) (0-0.2) K/uL Immature Gran # (Auto) (0.00-0.02) K/uL PT (9.0-12.0) Seconds INR (0.9-1.1) APTT (21.0-31.0) Seconds PTT Ratio POC Sodium 142 (135-144) mmol/L Sodium (136-145) mmol/L POC Potassium 3.6 (3.3-5.0) mmol/L Potassium (3.5-5.1) mmol/L POC Chloride 107 (101-112) mmol/L Chloride (98-107) mmol/L Carbon Dioxide (21-32) mmol/L POC Total CO2 22 L (24-31) mmol/L Anion Gap (3-11) POC Anion Gap 18.0 (16-25) mmol/L POC BUN 10 (7-18) mg/dl BUN (7-18) mg/dl Creatinine (0.6-1.2) mg/dl POC Creatinine 0.9 (0.6-1.3) mg/dl Est Cr Clr Drug Dosing ml/min Est GFR ( Amer) Est GFR (Non-Af Amer) BUN/Creatinine Ratio (10-20) Glucose (70-99) mg/dl POC Glucose (other) 116 H (70-99) mg/dl Calcium (8.5-10.1) mg/dl POC Ioniz Calcium Krystyna 1.29 (1.12-1.32) mmol/l Magnesium (1.8-2.4) mg/dl Total Bilirubin (0.2-1) mg/dl AST (15-37) U/L ALT (12-78) U/L Alkaline Phosphatase (45-117) U/L Troponin I (0-0.045) ng/ml Total Protein (6.4-8.2) gm/dl Albumin (3.4-5.0) gm/dl Globulin (2.5-4.0) gm/dl Albumin/Globulin Ratio (0.9-2) TSH 1.010 (0.300-4.500) uIu/ml Anaplasma Smear Lyme Disease IgG Ab Negative (Negative) Lyme Disease IgM Ab Negative (Negative) Administered Medications Discontinued Medications Aspirin (Aspirin) 300 mg MT NOW ONE Stop: 11/10/19 12:16 Last Admin: 11/10/19 12:38 Dose: 300 mg Documented by: [id number] Sodium Chloride (Nss 1000ml) 1,000 mls @ 999 mls/hr IV .Q1H1M ONE Stop: 11/10/19 12:20 Last Infusion: 11/10/19 13:10 Dose: 0 mls/hr Documented by: [id number] Admin: 11/10/19 12:08 Dose: 999 mls/hr Documented by: [id number] Acetaminophen (Ofirmev) 1,000 mg in 100 mls @ 400 mls/hr IV NOW ONE Stop: 11/10/19 12:29 Last Infusion: 11/10/19 12:37 Dose: 0 mls/hr Documented by: [id number] Admin: 11/10/19 12:08 Dose: 400 mls/hr Documented by: [id number] Ioversol (Optiray 320 125ml) 119 ml IV ONCE PRN PRN Reason: Interaction Checking Stop: 11/14/19 10:41 Last Admin: 11/10/19 10:42 Dose: 119 ml Documented by: [id number] Discharge Plan Visit Data *Final* Discharge Date/Time: 11/10/19 12:53 Chief Complaint: Stroke/CVA Symptoms Stated Complaint: stroke symptoms ED Provider: Gene Robles Discharge Problem: Stroke-like symptoms, Cerebrovascular accident, Facial droop Patient Disposition: Admitted As Inpatient Discharge Instructions Interventions: ED Discharge Assessment Last Done: 11/10/19 12:53 Discharge Problem: Cerebrovascular accident Qualifiers: CVA mechanism: unspecified Qualified Code(s): I63.9 - Cerebral infarction, unspecified
[2019-11-10 10:36] LABS: Hematocrit (blood only) 39.9 % (37-47); Hemoglobin 13.3 g/dL (12.0-16.0); Immature Granulocytes # (auto) 0.01 K/uL (0.00-0.02); Immature Granulocytes % (auto) 0.2 %; Lymphocytes # (auto) 1.93 K/uL (1.2-3.4); Lymphocytes % (auto) 29.3 %; Mean Corpuscular Hemoglobin 27.7 pg (25-34); Mean Corpuscular Hgb Conc 33.3 g/dL (32-36); Mean Platelet Volume 11.9 fL (7.4-10.4); Monocytes # (auto) 0.56 K/uL (0.11-0.59); Monocytes % (auto) 8.5 %; Neutrophils # (auto) 4.09 K/uL (1.4-6.5); Platelet Count 264 K/uL (130-400); RDW Coefficient of Variation 15.2 % (11.5-14.5); RDW Standard Deviation 46.2 fL (36.4-46.3); Red Blood Count 4.81 M/uL (4.2-5.4); White Blood Count 6.59 K/uL (4.8-10.8)
[2019-11-10 10:38] LABS: iSTAT Creatinine 0.9 mg/dl (0.6-1.3); iSTAT Hemoglobin 13.9 g/dl (12.0-16.0); iSTAT Ionized Calcium 1.29 mmol/l (1.12-1.32); iSTAT Potassium 3.6 mmol/L (3.3-5.0)
--- NOTE | 2019-11-10 10:40 | CT Scan Report ---
CT SCAN OF THE BRAIN WITHOUT IV CONTRAST CLINICAL HISTORY: Change in mental status. Right arm weakness. COMPARISON STUDY: CT of the brain dated 12/01/2015. TECHNIQUE: Unenhanced axial CT scan of the brain is performed from the vertex to the skull base. A d ose lowering technique was utilized adhering to the principles of ALARA. FINDINGS: Brain parenchyma: The brain parenchyma is normal in appearance. There is no hemorrhage, mass effect, or evidence of acute territorial ischemia by CT criteria. Botello-white matter differentiation is preser juan. No extra-axial fluid collection is seen. Ventricles, sulci, cisterns: Normal in configuration. Intracranial vasculature: The visualized intracranial vasculature at the skull base is normal in appe arance. Calvarium: Unremarkable. Sinuses and mastoids: The visualized paranasal sinuses are clear. The mastoid air cells are well pneu matized. Orbits: The bony orbits are grossly intact. IMPRESSION: No acute intracranial abnormality. ACT 112: Negative or not required by law. Electronically signed by: Paul Braun M.D. 11/10/2019 10:32 AM
[2019-11-10] MEDS ORDERED: OPTIRAY 320 125ml IV PRN (10:42)
--- NOTE | 2019-11-10 10:44 | CT Scan Report ---
CT ANGIOGRAM OF THE BRAIN; CT ANGIOGRAM OF THE NECK CLINICAL HISTORY: Right arm weakness. Change in mental status. COMPARISON STUDY: Unenhanced CT of the brain performed concurrently on 11/10/2019. TECHNIQUE: Following the IV administration of 119 of Optiray 320, CT angiogram of the head and neck w as performed from the aortic arch to the vertex. Images are reviewed in the axial, sagittal, and lizabeth nal planes. 3-D MIPS images are created and assessed. IV contrast was administered without complicati on. All measurements were calculated based on NASCET criteria. A dose lowering technique was utilize d adhering to the principles of ALARA. CT DOSE: 1085.13 mGy.cm FINDINGS: Brain parenchyma: The brain parenchyma is normal in appearance. There is no hemorrhage, mass effect, or evidence of acute territorial ischemia by CT criteria. There is no evidence of enhancing mass lesi on on the angiogram phase images. The ventricles, sulci, and cisterns are normal in configuration. Gr ay-white matter differentiation is preserved. No extra-axial fluid collection is seen. Thoracic aorta: Visualized portions of the thoracic aorta are normal in caliber. The aortic arch demo nstrates standard 3-vessel anatomy. Right carotid arterial system: The right common carotid artery is widely patent, as are the right int ernal and external carotid arteries. Left carotid arterial system: The left common carotid artery is widely patent, as are the left transportation logistics internship al and external carotid arteries. Vertebral arteries: The vertebral arteries are widely patent bilaterally and codominant. Subclavian arteries: Widely patent bilaterally. Intracranial vasculature: The internal carotid arteries are patent at the skull base, as are the ante rior and middle cerebral arteries bilaterally. The vertebrobasilar system and posterior cerebral ezequiel deep are widely patent. The vertebral arteries are codominant. There is no aneurysm, high-grade steno sis, or focal vessel cut off seen throughout the intracranial circulation. Jugular veins: Patent bilaterally. Dural sinuses: Patent. Lung apices: Partially visualized upper lobe lung parenchyma appears clear. Soft tissues: The visualized pharyngeal soft tissues are normal in appearance noting angiographic pha se technique. The oropharyngeal airway appears widely patent. The salivary and thyroid glands are nor mal in appearance. No cervical lymphadenopathy is seen. Skeletal structures: The calvarium appears intact. The cervical spine is within normal limits. No lyt ic or blastic lesion is seen. Sinuses and mastoids: The paranasal sinuses are clear. The mastoid air cells are well pneumatized. IMPRESSION: 1. There is no hemorrhage, mass effect, or evidence of acute territorial ischemia by CT criteria noti ng angiographic phase technique. 2. Unremarkable CT angiogram of the brain. 3. Unremarkable CT angiogram of the neck. ACT 112: Negative or not required by law. Electronically signed by: Paul Braun M.D. 11/10/2019 10:40 AM
[2019-11-10 10:47] LABS: Partial Thromboplastin Time 27.9 Seconds (21.0-31.0); Prothrombin Time 10.8 Seconds (9.0-12.0)
[2019-11-10 10:54] LABS: Alanine Aminotransferase 17 U/L (12-78); Albumin Level 3.9 gm/dl (3.4-5.0); Aspartate Aminotransferase 14 U/L (15-37); BUN Creatinine Ratio 10.2 (10-20); Blood Urea Nitrogen 10 mg/dl (7-18); Calcium 8.8 mg/dl (8.5-10.1); Carbon Dioxide 22 mmol/L (21-32); Chloride 113 mmol/L (98-107); Creatinine Clr Calc Pharmacy 102.4 ml/min; Est GFR (African American) 89.3; Glucose 113 mg/dl (70-99); Magnesium 2.3 mg/dl (1.8-2.4); Potassium 3.6 mmol/L (3.5-5.1); Sodium 143 mmol/L (136-145)
[2019-11-10 10:59] LABS: Albumin Globulin Ratio 0.9 (0.9-2); Alkaline Phosphatase 70 U/L (45-117); Globulin 4.4 gm/dl (2.5-4.0); Total Protein 8.3 gm/dl (6.4-8.2); Troponin I < 0.015 ng/ml (0-0.045)
[2019-11-10] MEDS ORDERED: SODIUM CHLORIDE 0.9% 1000ML 1,000 ML IV ONE (11:20)
[2019-11-10] MEDS ORDERED: ASPIRIN CHEW 324 MG PO STA (11:20)
--- NOTE | 2019-11-10 11:21 | XRay Report ---
SINGLE VIEW CHEST CLINICAL HISTORY: Strokelike symptoms FINDINGS: An AP, portable, upright chest radiograph is compared to study dated 10/27/2019. The cardiom ediastinal silhouette is unremarkable. The lungs and pleural spaces are clear. No pneumothorax is see n. The bony thorax is grossly intact. Bilateral nipple piercings are noted. Cholecystectomy clips are seen in the right upper quadrant. IMPRESSION: No active disease in the chest. ACT 112: Negative or not required by law. Electronically signed by: Paul Braun M.D. 11/10/2019 11:20 AM
[2019-11-10 11:25] LABS: Lyme Ab IgG w/WB Rflx Negative (Negative); Lyme Ab IgM w/WB Rflx Negative (Negative)
[2019-11-10] MEDS ORDERED: ACETAMINOPHEN 500 MG TAB PO ONE (11:30)
[2019-11-10] MEDS ORDERED: ACETAMINOPHEN 1,000 MG/100 ML VIAL IV ONE (12:15)
[2019-11-10] MEDS ORDERED: ASPIRIN 300 MG SUPP PR ONE (12:15)
--- NOTE | 2019-11-10 12:53 | Electrocardiogram Report ---
Test Reason : Blood Pressure : / mmHG Vent. Rate : 056 BPM Atrial Rate : 056 BPM P-R Int : 162 ms QRS Dur : 090 ms QT Int : 456 ms P-R-T Axes : 008 -19 000 degrees QTc Int : 440 ms Sinus bradycardia Otherwise normal ECG When compared with ECG of 27-OCT-2019 16:00, No significant change was found Confirmed by Fausto Frost ([id number]) on 11/10/2019 12:52:53 PM Referred By: REFERRED SELF Confirmed By:Fausto Frost
--- NOTE | 2019-11-10 13:03 | History & Physical Report ---
Date of Service November 10, 2019 Assessment & Plan (1) Stroke-like symptoms: Pt is 29 y/o F with PMH asthma, DM II, migraine BETTS, depression, anxiety, ADHD, PCOS presented to ER with c/o right sided facial paresthesias and right sided facial droop, right sided BETTS. Pt reports that she woke up this morning and right face felt numb and tingly. Later in morning saw her mother who reported right sided facial droop. In ER afebrile, vitals stable. Pt with noted right facial droop. No leukocytosis, no significant electrolyte abnormality Tele Stroke was consulted. Pt had negative CT head, Negative CTA head and neck. It was recommended to start aspirin. No TPA recommended CT HEAD: No acute intracranial abnormality. CTA HEAD & CTA NECK 1. There is no hemorrhage, mass effect, or evidence of acute territorial ischemia by CT criteria noting angiographic phase technique. 2. Unremarkable CT angiogram of the brain. 3. Unremarkable CT angiogram of the neck. DDX: Stroke,TIA, [place] palsy, atypical migraine headache, mass, tick borne disease, trigeminal neuralgia, MS -Tele to monitor for arrhythmias -Will start Rocephin with recent tick bite, reported completed a 5 day course of doxycycline several days ago (h/o tick bite on 10/30/19). Negative Lyme IgG Ab and IgM Ab today -pending tox screen, TSH, lipids, A1c -MRI brain -echo with bubble study -aspiration precautions -PT/OT consult -continue statin -aspirin -neurology consult (2) Diabetes mellitus, type II: A1c: 5.1 on 02/11/2019 -Hold metformin -Novolog sliding scale per protocol (3) Migraine: -Continue Topamax. Pt prescribed total 75mg BID. She reports takes 100mg HS (4) Depression with anxiety: (5) ADHD: -Continue venlafaxine -Reports not on Concerta for ADHD since last year DVT Prophylaxis -SCDs Follows with Dr Joaquín Sanches for routine care Pt was seen and care coordinated with Dr Mcmahan. See addendum History of Present Illness Chief Complaint: Facial paresthesias and drooping Primary Care Provider: Joaquín Sanches, Pt is 29 y/o F with PMH asthma, DM II, migraine BETTS, depression, anxiety, ADHD, PCOS presented to ER with c/o right sided facial paresthesias and right sided facial droop. Pt reports that she woke up this morning and felt "off" and her right face felt numb and tingly. Pt states she doesn't really remember all the events of the morning but reports she went grocery shopping this morning and face still felt funny. She went to her mothers house and mother reported right sided facial drooping and pt states then she remembers being in ER. Pt c/o right sided BETTS. Denies any vision changes. She reports drank coffee prior to ER arrival and did not have any difficulty swallowing and no choking. Pt also c/o right hand paresthesias. She reports had tick bite on 10/30/19 to abdomen and tick was engorged and had surrounding erythema. She was seen at PCP office on 11/01/2019 and no reported redness or bulls eye rash at that visit and pt was given Doxycycline 100mg BID x 5 days. Pt states she took that without any side effects. Pt reports has medical marijuana card and uses topical cream to her neck and legs. 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 Outpatient records reviewed and show pt with skin biopsy to left thigh in 2019 was consistent with "a neutrophilic urticaria. a histologically mild neutrophilic dermatosis and possibly a pathergy response. The changes in the subcutaneous adipose tissue are consistent with response to trauma or prior mild inflammatory infiltrate which has subsided. There is no evidence of active panniculitis. There is no evidence of vasculitis. The patient's prior biopsy ([id number]) was reviewed in conjunction with the current case and demonstrates similar findings with a more intense infiltrate in the prior specimen." Pt has not had further workup or followed with rheumatology. She reports h/o previous brain trauma about 10 years ago and since with migraines and is on Topamax and follows with Dr French/Loree Hannah at [facility] neurology. She states she gets right sided BETTS's regularly but are not as severe or often since being on Topamax. Denies fever/chills, diaphoresis, N/V/D/C, dizziness, syncope, vision changes, neck pain, CP, SOB, orthopnea, palpitations, cough, sore throat, choking, ear discharge, rhinorrhea, abdominal pain, extremity weakness, extremity edema, rashes, urinary symptoms. Denies ETOH or other drug use. In ER pt with noted right sided facial droop and reported right face and right hand paresthesias. Tele Stroke was consulted. Pt had negative CT head, Negative CTA head and neck. It was recommended to start aspirin. Allergies Allergy/AdvReac Type Severity Reaction Status Date / Time doxycycline Allergy Severe HIVES,DIFFICULTY Unverified 11/10/19 12:38 BREATHING; cat dander Allergy Unknown Unknown Verified 11/10/19 11:09 oxycodone Allergy Unknown HIVES Verified 11/10/19 11:09 strawberry Allergy Unknown . Verified 11/10/19 11:09 Home Medications Home Medications Medication Instructions Recorded Confirmed Type metformin 1,000 mg PO BID 03/18/18 11/10/19 History topiramate [Topamax] 75 mg PO BID 03/18/18 11/10/19 History venlafaxine [Effexor XR] 150 mg PO QPM 03/18/18 11/10/19 History atorvastatin 40 mg PO HS 11/10/19 11/10/19 History lorazepam [Ativan] 0.5 mg PO TID PRN 11/10/19 11/10/19 History venlafaxine 37.5 mg PO QPM 11/10/19 11/10/19 History Past Med/Surg History Medical History (Updated 11/10/19 @ 13:23 by Izabel Malhotra PA-C) ADHD Allergic reaction (Inactive) Asthma Depression with anxiety Diabetes mellitus, type II Hemorrhagic ovarian cyst (Inactive) Migraine (Acute) Ovarian cyst (Acute) PCOS (polycystic ovarian syndrome) Surgical History (Updated 11/10/19 @ 13:12 by Izabel Malhotra PA-C) H/O tubal ligation History of Family History (Updated 11/10/19 @ 13:16 by Izabel Malhotra PA-C) Other Diabetes Hypertension Social History (Updated 11/10/19 @ 13:17 by Izabel Malhotra PA-C) Preferred Language: [place] Communication Ability: Effective Visual Impairment: No Limitations Hearing Ability: Normal Current Living Situation: Family Feels Safe at Home: Yes Smoking Status: Never smoker Hx Alcohol Use: No Hx Substance Use: Yes Substance Use Type Other:: medical marijuana topical Review of Systems Review of Systems: All systems reviewed & are unremarkable except as noted in HPI & below Physical Exam Physical Exam: General: no distress, obese Head: normocephalic, atraumatic Eyes: PERRL, EOM's intact, conjunctiva non-injected, anicteric ENT: normal inspection external ears, nose, mucous membranes moist Neck: supple, trachea midline Lungs: clear, no respiratory distress, no wheezing/rhonchi/rales CV: RRR, no murmur, no pretibial edema Abd: normal BS, soft, non-tender Ext: no cyanosis, no calf tenderness Neuro: A&O x 3, visual giang appear intact. No nystagmus, reported decreased sensation to light touch on entire right side of face, normal reported sensation to left side of face. Initial exam of pt, pt appears to have left sided droop of mouth, during further exam appeared to have droop of right side of mouth and during LE strength testing pt was noted to have normal appearance of mouth without any noted drooping, then drooping appeared again. Able to raise both eyebrows symmetric, hearing grossly intact, no dysarthria noted, tongue is midline, normal movement, no fasciculations. Normal muscle tone, strength appears 5/5 upper and lower extremities Skin: warm, dry Results & Data Results & Data ([facility]) Vital Signs (Past 12 Hours) Vital Signs Temp Pulse Resp BP Pulse Ox 11/10/19 12:45 68 19 100 11/10/19 12:33 71 9 L 11/10/19 12:25 24 99 11/10/19 12:24 25 H 128/93 100 11/10/19 12:01 59 L 100 11/10/19 12:00 57 L 130/92 100 11/10/19 11:45 55 L 100 11/10/19 11:41 65 129/101 H 100 11/10/19 11:30 140/106 H 100 11/10/19 11:15 100 11/10/19 11:01 60 100 11/10/19 11:00 62 149/103 H 100 11/10/19 10:45 58 L 99 11/10/19 10:36 57 L 100 11/10/19 10:31 58 L 132/91 100 11/10/19 10:05 37.0 C 71 20 132/93 99 Laboratory Results Short CBC 11/10/19 Range/Units 10:23 WBC 6.59 (4.8-10.8) K/uL Hgb 13.3 (12.0-16.0) g/dL Hct 39.9 (37-47) % Plt Count 264 (130-400) K/uL BMP 11/10/19 10:23 Sodium 143 Potassium 3.6 Chloride 113 H Carbon Dioxide 22 BUN 10 Creatinine 0.99 Glucose 113 H Calcium 8.8 Cardiac Enzymes 11/10/19 Range/Units 10:23 Troponin I < 0.015 (0-0.045) ng/ml Liver Function 11/10/19 Range/Units 10:23 Total Bilirubin 1.0 (0.2-1) mg/dl AST 14 L (15-37) U/L ALT 17 (12-78) U/L Alkaline Phosphatase 70 (45-117) U/L Albumin 3.9 (3.4-5.0) gm/dl Urine 11/10/19 Range/Units 12:35 Urine Color Yellow Urine Appearance Cloudy A (Clear) Urine pH 8.5 H (4.5-7.5) Ur Specific [place] > 1.045 H (1.000-1.030) Urine Protein Negative (Negative) Urine Glucose (UA) Negative (Negative) Diagnostic Findings CT HEAD: IMPRESSION: No acute intracranial abnormality. CTA HEAD & CTA NECK IMPRESSION: 1. There is no hemorrhage, mass effect, or evidence of acute territorial ischemia by CT criteria noting angiographic phase technique. 2. Unremarkable CT angiogram of the brain. 3. Unremarkable CT angiogram of the neck. CXR: IMPRESSION: No active disease in the chest. Code Status & VTE Plan VTE Prophylaxis Plan VTE Prophylaxis will be ordered: Yes Supervising Physician Co-Signing Physician Notes Patient was seen and examined by me, care coordinated with Izabel Malhotra PA-C. Please see her note above for further details. Ms. Ha is a 29-year-old female with history of diabetes, migraine headache (on Topamax, follows with [facility] neurology), questionable history of lupus, who presents with right facial weakness and right pinky numbness. Patient states that when she initially woke up she did not notice much of a weakness however she felt numbness at her right jaw. She went to grocery store and when she came back she noted that she had more numbness/pain in her right jaw radiating to her right ear. She also reports right frontal headache, which she says she always has at the same place when she has her migraine headaches. She also reports taking increased dose of Topamax, 100 mg daily. In the emergency room, CT head, CTA of head and neck was obtained and negative. Neurology at [facility] was contacted, and recommended aspirin. On further evaluation, patient feels that now she is getting more of ear ache which she did not have in the past and continues to have right frontal headache. She denies any troubles with speech or swallowing. She also denies any vision changes. Denies any fevers, chills, chest pain, shortness of breath, abdominal pain, nausea or vomiting. She has recent history of a tick bite, tick was found on her abdomen and patient reported having rash, to her PCP. She reports she was taking p.o. antibiotics (per chart she has allergy to doxycycline, patient states that she has hives when in the sun with doxycycline). Lyme disease IgG and IgM obtained today in ED negative. Currently patient is lying in bed, in no acute distress. She is alert and oriented and answers questions appropriately. She is able to raise her eyebrows symmetrically, and short her eyes tight symmetrically without any weakness. However left side of her lip seems to be pulled back at rest. This then changes during the examination, and her right side seems to be more droopy/cold pack. She is able to move all her extremities without difficulty, no weakness noted. She has no sensory loss either. She continues to report numbness in her right pinky. She is breathing comfortably on room air, lungs are clear to auscultation laterally, without any wheezing rhonchi or crackles. Heart sounds are regular. EKG reviewed, shows anicteric area, with heart rate of 56. Abdomen is soft, nontender, nondistended, positive bowel sounds. Skin is warm, dry, well perfused. Does not appear to be due to Pink's palsy as there is no deficit in her upper face, patient is raising eyebrows without difficulty symmetrically, able to shrug her both eyes symmetrically and without difficulty. Possibly due to atypical migraine headache, trigeminal neuralgia, tick borne disease or MS. Will discuss with neurology. We will obtain brain MRI, blood smear, start empiric Rocephin. Raj Mcmahan MD
[2019-11-10 13:05] LABS: Appearance Urine Cloudy (Clear); Bacteria Urine Automated 1+ (Negative); Bilirubin Urine Negative (Negative); Blood Urine Negative (Negative); Color Urine Yellow; Epithelial Cell Urine Auto >30 /lpf (0-5); Glucose Urine UA Negative (Negative); Ketones Urine Negative (Negative); Leukocyte Esterase Urine Negative (Negative); Nitrite Urine Negative (Negative); Protein Urine Negative (Negative); RBC Urine Automated 0-4 /hpf (0-4); Specific Gravity Urine > 1.045 (1.000-1.030); Urobilinogen Urine Negative (Negative); pH Urine 8.5 (4.5-7.5)
[2019-11-10 13:26] LABS: Amphetamines+Metham, Urine Neg (Neg); Barbiturates, Urine Neg (Neg); Benzodiazepine, Urine Neg (Neg); Cocaine, Urine Neg (Neg); MDMA (Ecstacy), Urine Neg (Neg); Methadone, Urine Neg (Neg); Opiate, Urine Neg (Neg); Phencyclidine, Urine Neg (Neg)
[2019-11-10] MEDS ORDERED: ACETAMINOPHEN 325 MG TAB PO PRN (15:26)
[2019-11-10] MEDS ORDERED: GLUCOSE 40% GEL 15 GM TUBE PO PRN (15:26)
[2019-11-10] MEDS ORDERED: CARBOHYDRATES FOR HYPOGLYCEMIA PO PRN (15:26)
[2019-11-10] MEDS ORDERED: GLUCOSE 10 TABS/TUBE PO PRN (15:26)
[2019-11-10] MEDS ORDERED: GLUCAGON FOR INJ 1 MG VIAL SQ PRN (15:26)
[2019-11-10] MEDS ORDERED: ACETAMINOPHEN 1000 MG/100 ML IV IV PRN (15:26)
[2019-11-10] MEDS ORDERED: DEXTROSE 50% 50 ML SYRINGE IV PRN (15:26)
[2019-11-10] MEDS ORDERED: PHARMACIST DISCHARGE MED REC CONSULT PRN (15:26)
--- NOTE | 2019-11-10 15:28 | Magnetic Resonance Report ---
MRI OF THE BRAIN WITHOUT IV CONTRAST CLINICAL HISTORY: Strokelike symptoms. Right-sided weakness. COMPARISON STUDY: CT of the brain dated 11/10/2019. TECHNIQUE: MRI of the brain was performed utilizing various T1 and T2-weighted sequences in the axial , sagittal, and coronal planes. IV contrast was not administered for this examination. FINDINGS: Brain parenchyma: The brain parenchyma is normal in appearance. There is no hemorrhage or mass effect . There is no restricted diffusion to suggest acute ischemia. [place]-white matter differentiation is pr eserved. No extra-axial fluid collection is seen. The cerebellar tonsils are normal in configuration. Ventricles, sulci, and cisterns: Normal in configuration. Pituitary and sella: Unremarkable. Intracranial vasculature: Normal flow voids are maintained at the skull base. Orbits: The bony orbits are grossly intact. Orbital contents are normal in appearance. Sinuses and mastoids: Clear. Calvarium: Unremarkable. Cervical cord: Partially visualized cervical spinal cord is normal in morphology and signal intensity . IMPRESSION: No acute intracranial abnormality. ACT 112: Negative or not required by law. Electronically signed by: Paul Braun M.D. 11/10/2019 3:27 PM
[2019-11-10] MEDS ORDERED: cefTRIAXone SODIUM 2,000 MG in DEXTROSE 5% 50 ML IV SCH (16:00)
[2019-11-10] MEDS: INSULIN ASPART 100 UNITS/ML 3 ML PEN SC SCH ×2 (16:48→22:02)
[2019-11-11 07:25] LABS: Hematocrit (blood only) 36.8 % (37-47); Hemoglobin 12.4 g/dL (12.0-16.0); Lymphocytes # (auto) 1.73 K/uL (1.2-3.4); Lymphocytes % (auto) 34.1 %; Mean Corpuscular Hemoglobin 27.6 pg (25-34); Mean Corpuscular Hgb Conc 33.7 g/dL (32-36); Mean Corpuscular Volume 81.8 fL (80-100); Mean Platelet Volume 11.8 fL (7.4-10.4); Monocytes # (auto) 0.36 K/uL (0.11-0.59); Monocytes % (auto) 7.1 %; Neutrophils # (auto) 2.99 K/uL (1.4-6.5); Neutrophils % (auto) 58.8 %; Platelet Count 228 K/uL (130-400); RDW Coefficient of Variation 15.1 % (11.5-14.5); RDW Standard Deviation 44.6 fL (36.4-46.3); White Blood Count 5.08 K/uL (4.8-10.8)
[2019-11-11 07:43] LABS: BUN Creatinine Ratio 8.6 (10-20); Calcium 8.4 mg/dl (8.5-10.1); Creatinine Clr Calc Pharmacy 133.3 ml/min; Est GFR (African American) 117.2; Est GFR (Non-African American) 101.2; Potassium 3.4 mmol/L (3.5-5.1)
[2019-11-11] MEDS ORDERED: POTASSIUM CHLORIDE 20 MEQ TABCR PO STA (08:21)
[2019-11-11] MEDS ORDERED: ASPIRIN 81 MG ECTAB PO SCH (09:00)
[2019-11-11] MEDS: INSULIN ASPART 100 UNITS/ML 3 ML PEN SC SCH ×2 (09:13→11:56)
--- NOTE | 2019-11-11 12:03 | Hospitalist Progress Note ---
Date of Service November 11, 2019 Assessment & Plan (1) Stroke-like symptoms: Stroke ruled out. Pt is 29 y/o F with PMH asthma, DM II, migraine BETTS, depression, anxiety, ADHD, PCOS presented to ER with c/o right sided facial paresthesias and right sided facial droop, right sided BETTS. Pt reports that she woke up this morning and right face felt numb and tingly. Later in morning saw her mother who reported right sided facial droop. Tele Stroke was consulted. Pt had negative CT head, Negative CTA head and neck. It was recommended to start aspirin. No TPA recommended CT HEAD: No acute intracranial abnormality. CTA HEAD & CTA NECK 1. There is no hemorrhage, mass effect, or evidence of acute territorial ischemia by CT criteria noting angiographic phase technique. 2. Unremarkable CT angiogram of the brain. 3. Unremarkable CT angiogram of the neck. MRI of the brain-negative for any elation EKG and echo are unremarkable.ECHO-LV is normal in size with borderline concentric LV hypertrophy, normal LV wall motion with EF 65 to 70%. No significant valvular disease and no ASD Appreciate neurology input and recommendation-no additional medication advised Will be discharged home this afternoon Right facial palsy Associated with some right ear pain without any rash and/or deafness Resolved spontaneously and completely Doubt Pink's for Pink's palsy or any other mononeuropathy Overall the condition improved (2) Diabetes mellitus, type II: A1c: 5.1 on 02/11/2019 -Hold metformin -Novolog sliding scale per protocol (3) Migraine: -Continue Topamax. Pt prescribed total 75mg BID. She reports takes 100mg HS -No acute attack of migraine (4) Depression with anxiety: (5) ADHD: -Continue venlafaxine -Reports not on Concerta for ADHD since last year DVT Prophylaxis -SCDs Follows with Dr Joaquín Sanches for routine care Will be discharged home this afternoon Admission and Anticipated Discharge Date Admission Date: November 10, 2019 Subjective The patient was seen and examined in telemetry unit She was admitted with transient right facial palsy associated with paresthesia and right-sided headache Her symptoms are completely resolved as of this morning She denies any other symptoms except minimal pain in the right ear without any evidence of rash Review of Systems Review of Systems: All systems reviewed and are unremarkable except as noted below Ear, Nose, Mouth, Throat: + ear pain (Right without any deafness and a rash); no ear discharge Physical Exam Physical Exam: Lying in bed comfortably Constitutional: well developed, well nourished and + obese; no acute distress and not ill appearing Eyes: PERRL, conjunctivae normal, anicteric sclerae ENMT: external ear and nose normal, oropharynx normal Neck: trachea midline, no thyromegaly Respiratory: normal respiratory effort; no respiratory distress Auscultation: lungs clear to auscultation bilaterally Cardiovascular: Rate/Rhythm: regular rate and regular rhythm Heart Sounds: no murmur Gastrointestinal (Abdomen): Inspection/Auscultation: abdomen normal to i nspection; abdomen not distended Percussion/Palpation: abdomen soft; abdomen nontender Musculoskeletal: No acute arthritis involving any joint Neurologic: PERRL, EOMI, accommodation nl, no face palsy, no dysarthria moves all extremities; no focal motor deficits Lymphatic: no cervical or axillary lymphadenopathy Results & Data Results & Data ([facility]) Vital Signs (Past 12 Hours) Vital Signs Temp Pulse Pulse Resp BP BP Pulse Ox 11/11/19 11:40 36.7 C 67 19 114/79 97 11/11/19 07:19 66 11/11/19 06:54 36.7 C 64 19 127/80 98 11/11/19 03:58 36.5 C 68 18 128/72 100 11/10/19 23:55 36.7 C 71 16 137/86 98 Laboratory Results Short CBC 11/10/19 11/11/19 Range/Units 10:23 06:56 WBC 6.59 5.08 (4.8-10.8) K/uL Hgb 13.3 12.4 (12.0-16.0) g/dL Hct 39.9 36.8 L (37-47) % Plt Count 264 228 (130-400) K/uL BMP 11/10/19 11/11/19 10:23 06:56 Sodium 143 139 Potassium 3.6 3.4 L Chloride 113 H 113 H Carbon Dioxide 22 20 L BUN 10 7 Creatinine 0.99 0.79 Glucose 113 H 86 Calcium 8.8 8.4 L Cardiac Enzymes 11/10/19 Range/Units 10:23 Troponin I < 0.015 (0-0.045) ng/ml Liver Function 11/10/19 Range/Units 10:23 Total Bilirubin 1.0 (0.2-1) mg/dl AST 14 L (15-37) U/L ALT 17 (12-78) U/L Alkaline Phosphatase 70 (45-117) U/L Albumin 3.9 (3.4-5.0) gm/dl Urine 11/10/19 Range/Units 12:35 Urine Color Yellow Urine Appearance Cloudy A (Clear) Urine pH 8.5 H (4.5-7.5) Ur Specific Robertson > 1.045 H (1.000-1.030) Urine Protein Negative (Negative) Urine Glucose (UA) Negative (Negative) Medications Administered Current Inpatient Medications Acetaminophen (Tylenol) 650 mg PO Q4H PRN PRN Reason: Pain or Fever Stop: 12/10/19 15:25 Acetaminophen (Ofirmev) 1,000 mg IV Q8 PRN PRN Reason: Pain or Fever Stop: 11/13/19 15:25 Aspirin (Ecotrin Ectab) 81 mg PO DAILY YUNI Stop: 12/11/19 08:59 Last Admin: 11/11/19 09:18 Dose: 81 mg Documented by: Atorvastatin Calcium (Lipitor) 40 mg PO HS YUNI Stop: 12/11/19 20:59 Dextrose (Dextrose 50%) 25 - 50 ml IV UD PRN; Protocol PRN Reason: Hypoglycemia Protocol Stop: 12/10/19 15:25 Glucagon (Glucagen) 1 mg SQ UD PRN; Protocol PRN Reason: Hypoglycemia Protocol Stop: 12/10/19 15:25 Glucose (Dex4 Glucose) 4 - 8 tabs PO UD PRN; Protocol PRN Reason: Hypoglycemia Protocol Stop: 12/10/19 15:25 Glucose (Glucose 40%) 15 - 30 gm PO UD PRN; Protocol PRN Reason: Hypoglycemia Protocol Stop: 12/10/19 15:25 Ceftriaxone Sodium 2,000 mg/ (Dextrose) 70 mls @ 100 mls/hr IV Q24H YUNI; Protocol Stop: 11/20/19 15:59 Last Infusion: 11/10/19 18:09 Dose: Infused Documented by: Insulin Aspart (Novolog Flexpen) 0 units SC ACHS YUNI Stop: 12/10/19 16:29 Last Admin: 11/11/19 11:56 Dose: Not Given Documented by: Miscellaneous (Carbohydrates For Hypoglycemia) 15 - 30 gm PO UD PRN PRN Reason: Hypoglycemia Protocol Stop: 12/10/19 15:25 Miscellaneous Information (Pharmacist Discharge Med Rec Consult) 1 ea N/A UD PRN PRN Reason: Consult Stop: 12/10/19 15:25 Topiramate (Topamax) 100 mg PO QAM [facility] Stop: 12/12/19 20:59 Venlafaxine HCl (Effexor Extended Release) 150 mg PO QPM [facility] Stop: 12/11/19 20:59 Venlafaxine HCl (Effexor Extended Release) 37.5 mg PO QPM [facility] Stop: 12/11/19 20:59
[2019-11-11] MEDS ORDERED: STROKE PATIENT DISCHARGE STA (13:36)
[2019-11-11] MEDS ORDERED: VENLAFAXINE HCL XR 150 MG CAPXR PO SCH (21:00)
[2019-11-11] MEDS ORDERED: ATORVASTATIN 40 MG TAB PO SCH (21:00)
[2019-11-11] MEDS ORDERED: VENLAFAXINE HCL XR 37.5 MG CAPXR PO SCH (21:00)
[2019-11-12 06:26] LABS: Estimated Average Glucose 108 mg/dl; Hemoglobin A1C 5.4 % (4.5-5.6)
--- NOTE | 2019-11-12 07:59 | Discharge Summary ---
Date of Service November 12, 2019 Admission HPI Per Admitting Provider Pt is 29 y/o F with PMH asthma, DM II, migraine BETTS, depression, anxiety, ADHD, PCOS presented to ER with c/o right sided facial paresthesias and right sided facial droop. Pt reports that she woke up this morning and felt "off" and her right face felt numb and tingly. Pt states she doesn't really remember all the events of the morning but reports she went grocery shopping this morning and face still felt funny. She went to her mothers house and mother reported right sided facial drooping and pt states then she remembers being in ER. Pt c/o right sided BETTS. Denies any vision changes. She reports drank coffee prior to ER arrival and did not have any difficulty swallowing and no choking. Pt also c/o right hand paresthesias. She reports had tick bite on 10/30/19 to abdomen and tick was engorged and had surrounding erythema. She was seen at PCP office on 11/01/2019 and no reported redness or bulls eye rash at that visit and pt was given Doxycycline 100mg BID x 5 days. Pt states she took that without any side effects. Pt reports has medical marijuana card and uses topical cream to her neck and legs. 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 Outpatient records reviewed and show pt with skin biopsy to left thigh in 2019 was consistent with "a neutrophilic urticaria. a histologically mild neutrophilic dermatosis and possibly a pathergy response. The changes in the subcutaneous adipose tissue are consistent with response to trauma or prior mild inflammatory infiltrate which has subsided. There is no evidence of active panniculitis. There is no evidence of vasculitis. The patient's prior biopsy ([id number]) was reviewed in conjunction with the current case and demonstrates similar findings with a more intense infiltrate in the prior specimen." Pt has not had further workup or followed with rheumatology. She reports h/o previous brain trauma about 10 years ago and since with migraines and is on Topamax and follows with Dr French/Loree Hannah at [facility] neurology. She states she gets right sided BETTS's regularly but are not as severe or often since being on Topamax. Denies fever/chills, diaphoresis, N/V/D/C, dizziness, syncope, vision changes, neck pain, CP, SOB, orthopnea, palpitations, cough, sore throat, choking, ear discharge, rhinorrhea, abdominal pain, extremity weakness, extremity edema, rashes, urinary symptoms. Denies ETOH or other drug use. In ER pt with noted right sided facial droop and reported right face and right hand paresthesias. Tele Stroke was consulted. Pt had negative CT head, Negative CTA head and neck. It was recommended to start aspirin. Admission Exam Per Admitting Provider Physical Exam: General: no distress, obese Head: normocephalic, atraumatic Eyes: PERRL, EOM's intact, conjunctiva non-injected, anicteric ENT: normal inspection external ears, nose, mucous membranes moist Neck: supple, trachea midline Lungs: clear, no respiratory distress, no wheezing/rhonchi/rales CV: RRR, no murmur, no pretibial edema Abd: normal BS, soft, non-tender Ext: no cyanosis, no calf tenderness Neuro: A&O x 3, visual giang appear intact. No nystagmus, reported decreased sensation to light touch on entire right side of face, normal reported sensation to left side of face. Initial exam of pt, pt appears to have left sided droop of mouth, during further exam appeared to have droop of right side of mouth and during LE strength testing pt was noted to have normal appearance of mouth without any noted drooping, then drooping appeared again. Able to raise both eyebrows symmetric, hearing grossly intact, no dysarthria noted, tongue is midline, normal movement, no fasciculations. Normal muscle tone, strength ap pears 5/5 upper and lower extremities Skin: warm, dry Principal Diagnosis Strokelike symptoms-resolved and stroke ruled out, transient right facial palsy, type 2 diabetes, migraine, depression/ADHD Discharge Exam Constitutional well developed, well nourished and + obese; no acute distress and not ill appearing Eyes PERRL, conjunctivae normal, anicteric sclerae ENMT external ear and nose normal, oropharynx normal Neck trachea midline, no thyromegaly Respiratory normal respiratory effort; no respiratory distress Auscultation: lungs clear to auscultation bilaterally Cardiovascular Rate/Rhythm: regular rate and regular rhythm Heart Sounds: no murmur Gastrointestinal (Abdomen) Inspection/Auscultation: abdomen normal to inspection; abdomen not distended Percussion/Palpation: abdomen soft; abdomen nontender Neurologic PERRL, EOMI, accommodation nl, no face palsy, no dysarthria moves all extremities; no focal motor deficits Lymphatic no cervical or axillary lymphadenopathy Discharge Data Allergies Allergy/AdvReac Type Severity Reaction Status Date / Time doxycycline Allergy Severe HIVES,DIFFICULTY Unverified 11/10/19 12:38 BREATHING; cat dander Allergy Unknown Unknown Verified 11/10/19 11:09 oxycodone Allergy Unknown HIVES Verified 11/10/19 11:09 strawberry Allergy Unknown . Verified 11/10/19 11:09 Consultations 11/10/19 11:32 ED Decision to Admit Stat 11/10/19 15:26 Consult Case Management - Discharge Planning Routine Consult Neurology Routine Ordered Studies 11/10/19 10:19 CT angio head w con Stat CT angio neck with con Stat CT head/brain wo con Stat 11/10/19 14:16 MR brain wo con Routine Hospital Course (1) Stroke-like symptoms: Stroke ruled out. Pt is 29 y/o F with PMH asthma, DM II, migraine BETTS, depression, anxiety, ADHD, PCOS presented to ER with c/o right sided facial paresthesias and right sided facial droop, right sided BETTS. Pt reports that she woke up this morning and right face felt numb and tingly. Later in morning saw her mother who reported right sided facial droop. Tele Stroke was consulted. Pt had negative CT head, Negative CTA head and neck. It was recommended to start aspirin. No TPA recommended CT HEAD: No acute intracranial abnormality. CTA HEAD & CTA NECK 1. There is no hemorrhage, mass effect, or evidence of acute territorial ischemia by CT criteria noting angiographic phase technique. 2. Unremarkable CT angiogram of the brain. 3. Unremarkable CT angiogram of the neck. MRI of the brain-negative for any elation EKG and echo are unremarkable.ECHO-LV is normal in size with borderline concentric LV hypertrophy, normal LV wall motion with EF 65 to 70%. No significant valvular disease and no ASD Appreciate neurology input and recommendation-no additional medication advised Will be discharged home this afternoon Right facial palsy Associated with some right ear pain without any rash and/or deafness Resolved spontaneously and completely Doubt Pink's for Pink's palsy or any other mononeuropathy Overall the condition improved (2) Diabetes mellitus, type II: A1c: 5.1 on 02/11/2019 -Hold metformin -Novolog sliding scale per protocol (3) Migraine: -Continue Topamax. Pt prescribed total 75mg BID. She reports takes 100mg HS -No acute attack of migraine (4) Depression with anxiety: (5) ADHD: -Continue venlafaxine -Reports not on Concerta for ADHD since last year DVT Prophylaxis -SCDs Follows with Dr Joaquín Sanches for routine care Will be discharged home this afternoon Total Time Total Time Spent Total Time Spent (In Minutes): 35 minutes Total Time Includes: Examination of the Patient, Discharge Planning, Medication Reconciliation and Communication With Other Providers Discharge Plan Discharge Items Patient Disposition: Home - Self-Care Reason For Visit: STROKE LIKE SYMPTOMS Discharge Diagnosis: Strokelike symptoms-resolved and stroke ruled out, transient right facial palsy, type 2 diabetes, migraine, depression/ADHD Condition on Discharge: Good Activity: Resume your previous activity Non-emergency contact: Primary Care Provider Call non-emergency contact if: you have any medication questions Follow-up/Referrals: Joaquín Sanches, [Primary Care Provider] - (Your doctor's office will call you with an appointment within 7 days) Diet: Carb Consistent or DM2 Addtl Attending Provider Instructions: No new medications are prescribed Please take precaution to avoid fall Pending Studies at Discharge: No Stand-Alone Forms: My [employer], Smoking Cessation Medications and DC Order Prescriptions: Continued venlafaxine [Effexor XR] 150 mg Capsule,Extended Release 24hr 150 mg PO QPM RF: 0 metformin 1,000 mg Tablet 1,000 mg PO BID RF: 0 topiramate [Topamax] 50 mg Tablet 75 mg PO BID RF: 0 venlafaxine 37.5 mg capsule,extended release 24hr 37.5 mg PO QPM RF: 0 atorvastatin 40 mg Tablet 40 mg PO HS RF: 0 lorazepam [Ativan] 0.5 mg Tablet 0.5 mg PO TID PRN (Reason: Anxiety) RF: 0 Discharge Orders: Discharge Order (Routine); Ordered 11/11/19 Ordered By: Garima Rojo Admission Data Admit Date/Time: 11/10/19 12:04 Attending Provider: Garima Rojo Admit Provider: Luis Enrique Mcmahan Primary Care Provider: Joaquín Sanches Other Providers: Luis Enrique Mcmahan ; Martin Eugene Other Interventions: Discharge Summary Assessment (RN) Last Done: 11/11/19 14:07 DC Date/Time DO NOT enter until pt leaves facility: 11/11/19 15:31
--- NOTE | 2019-11-12 09:26 | Consultation Report ---
DATE OF CONSULTATION: 11/10/2019 Consult was requested by Dr. Rojo. CHIEF COMPLAINT: Right facial droop and right facial paresthesias. HISTORY OF PRESENT ILLNESS: This is a 29-year-old woman with a history of migraine headaches, on Topamax, admitted to the hospital for complaint of right facial paresthesias and right-sided facial droop associated with a headache yesterday morning. Symptoms have since resolved. She denies any history of similar symptoms. She is a nonsmoker and currently not on control. She does have a history of migraine with visual auras, which she describes as visual phosphenes. She denies any new medications. She did recently have a tick bite and was treated with 5 days of antibiotics. No history of Pink's palsy. Today, she reports feeling back to baseline and reports her face feels normal. She did have a photo of her face from the ER yesterday, which showed a prominent right facial droop. ALLERGIES: SHE IS ALLERGIC TO DOXYCYCLINE, HIVES; ALLERGIC TO OXYCODONE, HIVES; AND ALLERGIC TO STRAWBERRIES. HOME MEDICATIONS: Include metformin 1000 mg twice a day, Topamax 75 mg twice daily, ____ venlafaxine 150 mg nightly, atorvastatin 40 mg nightly, Ativan 0.5 mg 3 times as needed. PAST MEDICAL HISTORY: ADHD, asthma, depression and anxiety, type 2 diabetes, migraine with visual aura, and polycystic ovarian syndrome. SURGICAL HISTORY: History of a tubal ligation as well as a . FAMILY HISTORY: Positive for diabetes and hypertension. SOCIAL HISTORY: She has 2 children. She is a nonsmoker. She does use medical marijuana. REVIEW OF SYSTEMS: A 15-point review of systems was conducted and negative except as noted in the HPI as above. PHYSICAL EXAMINATION: GENERAL APPEARANCE: She appears stated age, normally developed, mildly obese. HEAD: Normocephalic, atraumatic. EYES: Conjunctivae appeared normal. Eyes are midline. ENT: Mucous membranes appear moist. NECK: Supple. LUNGS: Clear. CARDIOVASCULAR: Pulses are normal. ABDOMEN: Nondistended. EXTREMITIES: No rash noted. NEUROLOGIC: She is awake, alert and oriented to person, place and time. Visual giang are full to confrontation. Eyes are midline. No nystagmus. Face is symmetric with smile. Hearing is grossly intact. Tongue is midline. Pupils are symmetric and reactive to light. There is no tremor or myoclonic jerks. Muscle strength is 5/5 throughout. Sensation is intact to light touch. Reflexes are brisk at the knees and attenuated at the ankles. There is no ataxia with [id number] testing. Speech is clear, no dysarthria. The patient is following simple and complex commands. VITAL SIGNS: As follows: Her blood pressure was 114/79, her pulse was 67, respiratory rate was 19, her temperature was 36.7. RESULTS AND DIAGNOSTIC TESTING: MRI brain which was performed without contrast was unremarkable. No acute intracranial abnormality noted. CTA head and neck: There was no hemorrhage, mass effect, or high-grade stenosis. There was no large vessel occlusion. Transthoracic echocardiogram: The left ventricle was normal in size. The ejection fraction was 65%-70%. There was borderline concentric left ventricular hypertrophy. There was no cardiac thrombus noted. LABORATORY DATA: WBC was 5.08, hemoglobin was 12.4, platelet count was 228. Chemistries: Sodium was 139, potassium is 3.4, chloride is 113, carbon dioxide was 20, her creatinine was 0.79 and her BUN was 7. Hemoglobin A1c is pending. Calcium is 8.4. TSH was 1.01. Urine drug screen was positive for THC. Urinalysis showed 1+ bacteria and greater than 30 epithelial cells. ASSESSMENT AND PLAN: A 29-year-old woman with history of migraine with aura, admitted for transient right facial droop and right facial paresthesias which have since resolved. Differential diagnoses certainly includes migraine with aura versus an atypical cranial nerve VII palsy. Although a Pink's palsy or cranial nerve VII palsy seems unlikely given the acute resolution of symptoms and therefore would favor a complex migraine. Would recommend to continue current dose of Topamax. I did advise the patient to follow up with her PCP for evaluation of her vitamin B12 level as a reflex pattern was suggestive of possible vitamin B12 deficiency. Of note, the patient was previously on monthly injections of vitamin B12. Otherwise, the patient can follow up with her primary neurologist as an outpatient.
[2019-11-12] MEDS ORDERED: TOPIRAMATE 100 MG TAB PO SCH (21:00)
[2019-11-14 12:33] LABS: Marijuana Quant, GCMS Urine 153 ng/mL (<5)
== END 2019-11-11 15:31 | disposition home or self-care (01) | DRG 74 ==
LOC: ED 09:59 → SUATTDRO 12:04 → 2S 12:04